=== PATIENT | male | born 1985 | race Caucasian/White ===

== ENCOUNTER 2017-09-03 13:06 | Emergency (ER) | payer OTHER ==
[~2017-09-03] VITALS: Ht 190.5 cm; Wt 118.3 kg
[~2017-09-03 13:06] MED LIST: GABA-1218 PO; VENL150C PO
[2017-09-03 13:08] VITALS: TEMP 36.4; Ht 190.5 cm; Wt 118.3 kg
[2017-09-03] MEDS ORDERED: OXCA600T2 PO (13:21)
[2017-09-03] MEDS ORDERED: ESCI1TAB10 PO (13:21)
[2017-09-03] MEDS ORDERED: HYDR25CA PO (13:21)
[2017-09-03] MEDS ORDERED: ABL10 PO (13:21)
[2017-09-03] MEDS ORDERED: KETOROLAC TROMETHAMINE 60 MG/2 ML VIAL IM STA (13:30)
--- NOTE | 2017-09-03 14:40 | DIAGNOSTIC IMAGING REPORT ---
CERVICAL SPINE 2 OR 3 VIEWS CLINICAL HISTORY: Neck pain with right-sided radiculopathy. COMPARISON STUDY: No previous studies for comparison. FINDINGS: Alignment of the cervical spine is anatomic with the exception of straightening. There is minimal disc space narrowing at C6-C7. There is minimal osteophytosis at C5-C6 and C6-C7. Prevertebral soft tissues are unremarkable. IMPRESSION: 1. No cervical spine fracture. 2. Mild disc space narrowing at C6-C7 with mild osteophytosis at C5-C6 and C6-C7. Electronically signed by: Librado Rod M.D. 09/03/2017 2:38 PM Dictated Date/Time: 09/03/2017 2:37 PM
--- NOTE | 2017-09-03 14:41 | DIAGNOSTIC IMAGING REPORT ---
L SHOULDER MIN 2 VIEWS ROUTINE CLINICAL HISTORY: 32 years-old Male presenting with left shoulder pain. TECHNIQUE: Internal rotation, external rotation, Grashey views of the left shoulder were obtained. COMPARISON: 04/08/2013. FINDINGS: Lucency at the level of the left humeral neck localizes to the lesser tuberosity. This is not simply changed from prior exam and may relate to cystic change at the insertion of the subscapularis tendon or a small bone cyst. No acute fracture or malalignment. No degenerative change. Glenohumeral and acromioclavicular joints congruent. Visualized portion left hemithorax normal. No soft tissue abnormality is apparent on radiograph. IMPRESSION: 1. No acute osseous injury. 2. Persistent lucency at the level of the lesser tuberosity/humeral neck. This may relate to cystic change in the insertion of the subscapularis tendon or small bone cyst. If the patient's shoulder pain localizes to this region, further evaluation with contrast-enhanced MR of the left shoulder could be considered. Electronically signed by: Miguelito Browne M.D. 09/03/2017 2:39 PM Dictated Date/Time: 09/03/2017 2:37 PM
[2017-09-03] MEDS ORDERED: NAPR-1169 PO (15:14)
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
[2017-09-03 15:29] VITALS: BP 142/76; PULSE 78; O2SAT 97
== END 2017-09-03 15:31 | disposition home or self-care (01) ==
LOC: C.EDB 13:07 → C.EDD 15:31
DX: M25.511 Pain in right shoulder (principal); G89.29 Other chronic pain; M85.60 Other cyst of bone, unspecified site; F41.9 Anxiety disorder, unspecified; F32.9 Major depressive disorder, single episode, unspecified; F17.200 Nicotine dependence, unspecified, uncomplicated

== ENCOUNTER 2017-09-10 21:59 | Emergency (ER) | payer OTHER ==
[~2017-09-10] VITALS: Ht 190.5 cm; Wt 116.0 kg
[~2017-09-10 21:59] MED LIST changes: +ABL10 PO; +ESCI1TAB10 PO; -GABA-1218 PO; +HYDR25CA PO; +NAPR-1169 PO; +OXCA600T2 PO; -VENL150C PO
[2017-09-10 22:04] VITALS: Ht 190.5 cm; Wt 116.0 kg
[2017-09-10] MEDS ORDERED: NALT50TA5 PO (22:29)
[2017-09-10 23:01] LABS: BASO % 0.6 %; BASO ABS # 0.05 K/uL (0-0.2); EOS % 4.5 %; EOS ABS # 0.41 K/uL (0-0.5); HEMATOCRIT 39.2 % (42-52); HEMOGLOBIN 14.8 g/dL (14.0-18.0); IG# 0.05 K/uL (0.00-0.02); LYMPH % 33.8 %; LYMPH ABS # 3.06 K/uL (1.2-3.4); MEAN CELL VOLUME 83.4 fL (80-100); MEAN CORPUSCULAR HEMOGLOBIN 31.5 pg (25-34); MEAN CORPUSCULAR HGB CONC 37.8 g/dl (32-36); MEAN PLATELET VOLUME 10.2 fL (7.4-10.4); MONO % 7.4 %; MONO ABS # 0.67 K/uL (0.11-0.59); NEUT % 53.1 %; NEUT ABS # 4.81 K/uL (1.4-6.5); PLATELET COUNT 245 K/uL (130-400); RED CELL DISTRIBUTION WIDTH CV 13.1 % (11.5-14.5); RED CELL DISTRIBUTION WIDTH SD 39.9 fL (36.4-46.3); WHITE BLOOD COUNT 9.05 K/uL (4.8-10.8)
[2017-09-10 23:19] LABS: ALBUMIN 3.6 gm/dl (3.4-5.0); CALCIUM 8.5 mg/dl (8.5-10.1); CREATININE 0.87 mg/dl (0.60-1.40); POTASSIUM 3.4 mmol/L (3.5-5.1)
--- NOTE | 2017-09-10 23:21 | EMERGENCY ROOM VISIT NOTE ---
History Report prepared by Cesilia: Mikey Espinoza Under the Supervision of: Dr. Clara Cutler D.O. First contact with patient: 23:01 Chief Complaint: MENTAL HEALTH EVALUATION Stated Complaint: MHID History of Present Illness The patient is a 32 year old male who presents to the Emergency Room with complaints of an episode of an intentional overdose occurring at 1600 today. The patient states that he took 10 25mg Vistaril tablets and 9 600mg Trileptal tablets. He notes that he had an intention for something to happen when he took the pills. He reports that he told his sister and roommate, who called EMS tonight. The patient states that he has a history of manic bipolar disorder, but sees a psychiatrist and has not been admitted as an inpatient in the past. He notes that he has been depressed recently because of a situation with his daughter, who was almost taken away from him. He reports that the last time he has seen his daughter was about a month ago. The patient states that he takes heroin and marijuana recreationally. He notes that the last time he used heroin was 5 months ago, and that he just recently started using marijuana. He reports that he also takes Lexapro and Abilify. He denies any diarrhea, constipation, vomiting, SOB, CP, alcohol use, and drug use tonight. Source of History: patient Onset: 1600 today Position: other (global) Quality: other (overdose) Timing: other (an episode) Associated Symptoms: No chest pain, No SOB, No vomiting, No diarrhea Note: The patient states that he took 10 25mg Vistaril tablets and 9 600mg Trileptal tablets. He denies any constipation. Review of Systems See HPI for pertinent positives & negatives. A total of 10 systems reviewed and were otherwise negative. Past Medical & Surgical Medical Problems: (1) Anxiety (2) Depression (3) Manic bipolar I disorder (4) TOBACCO USE DISORDER Family History Cancer Diabetes mellitus FHx: hypertension Heart disease Social History Smoking Status: Current Every Day Smoker Alcohol Use: none Drug Use: heroin, marijuana Marital Status: single Housing Status: lives with roommate Occupation Status: unemployed Current/Historical Medications Scheduled Aripiprazole (Abilify), 10 MG PO DAILY Escitalopram Oxalate (Lexapro), 20 MG PO DAILY Hydroxyzine Pamoate (Vistaril), 25 MG PO TID Oxcarbazepine (Trileptal), 600 MG PO BID Scheduled PRN Naltrexone Hcl (Naltrexone Hcl), 50 MG PO DAILY PRN for UNDECIDED Allergies Coded Allergies: Vortioxetine (Verified Allergy, Unknown, FACIAL SWELLING, 09/10/17) Physical Exam Vital Signs Date Time Temp Pulse Resp B/P (MAP) Pulse Ox O2 Delivery O2 Flow Rate FiO2 09/11/17 05:21 83 15 125/72 99 Room Air 09/11/17 03:20 88 16 100/74 96 Room Air 09/11/17 01:00 86 14 117/78 09/11/17 00:00 92 16 118/77 95 09/10/17 23:30 95 17 09/10/17 23:19 95 17 140/78 96 09/10/17 22:04 36.8 93 16 163/91 98 Room Air Physical Exam General: Quite tired, yawning frequently, drooling at times. Neck: Supple; no JVD, nuchal rigidity, cervical lymphadenopathy, or auscultated bruits. Heart: Regular rate and rhythm. There is a normal S1 and S2 with no murmurs, clicks, or gallops appreciated. Lungs: Clear to auscultation bilaterally with no wheezes, rales, or rhonchi. Abdomen: Soft, completely nontender, nondistended, with good bowel sounds. There are no palpable pulsatile masses or hepatosplenomegaly. There is no guarding, rigidity, or rebound noted. Extremities: No evidence of cyanosis, clubbing, or edema. There are easily palpable peripheral pulses. Skin: warm and dry with good turgor and no rashes. Psych: Appears depressed, admits to suicide attempt by overdose. Medical Decision & Procedures Laboratory Results 09/10/17 22:38 Red Blood Count 4.70, Mean Corpuscular Volume 83.4, Mean Corpuscular Hemoglobin 31.5, Mean Corpuscular Hemoglobin Concent 37.8, Mean Platelet Volume 10.2, Neutrophils (%) (Auto) 53.1, Lymphocytes (%) (Auto) 33.8, Monocytes (%) (Auto) 7.4, Eosinophils (%) (Auto) 4.5, Basophils (%) (Auto) 0.6, Neutrophils # (Auto) 4.81, Lymphocytes # (Auto) 3.06, Monocytes # (Auto) 0.67, Eosinophils # (Auto) 0.41, Basophils # (Auto) 0.05 09/10/17 22:38 Test 09/10/17 22:00 09/10/17 22:38 Urine Color YELLOW Urine Appearance CLEAR (CLEAR) Urine pH 6.5 (4.5-7.5) Urine Specific [place] 1.024 (1.000-1.030) Urine Protein NEG (NEG) Urine Glucose (UA) NEG (NEG) Urine Ketones NEG (NEG) Urine Occult Blood NEG (NEG) Urine Nitrite NEG (NEG) Urine Bilirubin NEG (NEG) Urine Urobilinogen NEG (NEG) Urine Leukocyte Esterase NEG (NEG) Urine Opiates Screen NEG (NEG) Urine Methadone, Qualitative NEG (NEG) Urine Barbiturates NEG (NEG) Urine Phencyclidine (PCP) Level NEG (NEG) Ur Amphetamine/Methamphetamine NEG (NEG) MDMA (Ecstasy) Screen NEG (NEG) Urine Benzodiazepines Screen NEG (NEG) Urine Cocaine Metabolite NEG (NEG) Urine Marijuana (THC) POS (NEG) White Blood Count 9.05 K/uL (4.8-10.8) Red Blood Count 4.70 M/uL (4.7-6.1) Hemoglobin 14.8 g/dL (14.0-18.0) Hematocrit 39.2 % (42-52) Mean Corpuscular Volume 83.4 fL (80-100) Mean Corpuscular Hemoglobin 31.5 pg (25-34) Mean Corpuscular Hemoglobin Concent 37.8 g/dl (32-36) Platelet Count 245 K/uL (130-400) Mean Platelet Volume 10.2 fL (7.4-10.4) Neutrophils (%) (Auto) 53.1 % Lymphocytes (%) (Auto) 33.8 % Monocytes (%) (Auto) 7.4 % Eosinophils (%) (Auto) 4.5 % Basophils (%) (Auto) 0.6 % Neutrophils # (Auto) 4.81 K/uL (1.4-6.5) Lymphocytes # (Auto) 3.06 K/uL (1.2-3.4) Monocytes # (Auto) 0.67 K/uL (0.11-0.59) Eosinophils # (Auto) 0.41 K/uL (0-0.5) Basophils # (Auto) 0.05 K/uL (0-0.2) RDW Standard Deviation 39.9 fL (36.4-46.3) RDW Coefficient of Variation 13.1 % (11.5-14.5) Immature Granulocyte % (Auto) 0.6 % Immature Granulocyte # (Auto) 0.05 K/uL (0.00-0.02) Anion Gap 7.0 mmol/L (3-11) Est Creatinine Clear Calc Drug Dose 167.4 ml/min Estimated GFR () 132.4 Estimated GFR (Non- 114.2 BUN/Creatinine Ratio 11.4 (10-20) Calcium Level 8.5 mg/dl (8.5-10.1) Total Bilirubin 0.2 mg/dl (0.2-1) Aspartate Amino Transf (AST/SGOT) 16 U/L (15-37) Alanine Aminotransferase (ALT/SGPT) 41 U/L (12-78) Alkaline Phosphatase 90 U/L (45-117) Total Protein 6.9 gm/dl (6.4-8.2) Albumin 3.6 gm/dl (3.4-5.0) Globulin 3.3 gm/dl (2.5-4.0) Albumin/Globulin Ratio 1.1 (0.9-2) Thyroid Stimulating Hormone (TSH) 4.490 uIu/ml (0.300-4.500) Salicylates Level < 1.7 mg/dl (2.8-20) Acetaminophen Level < 2 ug/ml (10-30) Ethyl Alcohol mg/dL < 3.0 mg/dl (0-3) Laboratory results per my review. ECG Indication: toxicologic Rate (beats per minute): 90 Rhythm: normal sinus Findings: no acute ischemic change, no ectopy ED Course 2309: Past medical records reviewed. The patient was evaluated in room A7. A complete history and physical exam was performed. Labs were drawn as above. A twelve-lead EKG was obtained. 2317: Poison control was contacted. 2353: Patient's electrocardiogram was interpreted by me. 0029: I reevaluated the patient. He was sleeping. His vitals were stable. 0416: I rechecked the patient. He is awake and medically cleared. 0622: I reevaluated the patient. He will sign himself in voluntarily. The human services case manager is waiting to hear back from the [facility]. 0644: The patient requested something for his pain that is a non-opiate. He was given a dose of Tylenol. 0700: The patient was accepted to the [facility]. Medical Decision The patient is a 32 year old male who presents to the Emergency Room with complaints of an episode of an intentional overdose occurring at 1600 today. Differential diagnoses include intentional overdose, mood disorder, thought disorder, and drug abuse. Lab Results Show: Tox screen positive for marijuana. Alcohol negative. Tylenol and aspirin negative. Urinalysis is normal. LFTs and TSH are normal. Glucose 125. Normal renal function. No leukocytosis and stable H&H. This is a 32-year-old male patient who took an overdose of Trileptal and Vistaril. He stated that this was an effort to kill himself as he is upset about his situation with his daughter. He admits that he is not in a good position at this time. He is willing to sign himself in voluntarily for inpatient psychiatric care. The patient was observed for a period of time until he was more awake and medically cleared. He had an EKG which was unremarkable. He was on the alarm security or surveillance monitor with no sign of prolonged QT. We observed the patient here in the emergency department until he was more awake and could appropriately answer questions. He was evaluated by staff from [facility]. They made a referral to the [facility] the patient has been accepted there. Transport arrangements are being made. His morning medications were ordered. Blood Pressure Screening Patient's blood pressure: Normal blood pressure Blood pressure disposition: Did not require urgent referral Impression Primary Impression: Polysubstance overdose Additional Impression: Suicide attempt Scribe Attestation The scribe's documentation has been prepared under my direction and personally reviewed by me in its entirety. I confirm that the note above accurately reflects all work, treatment, procedures, and medical decision making performed by me. Departure Information Referrals No Doctor, Assigned (PCP) Patient Instructions My [facility] Problem Qualifiers Primary Impression: Polysubstance overdose Encounter type: initial encounter Injury intent: intentional self-harm Qualified Codes: T50.902A - Poisoning by unspecified drugs, medicaments and biological substances, intentional self-harm, initial encounter
[2017-09-10 23:29] LABS: TOTAL PROTEIN 6.9 gm/dl (6.4-8.2)
[2017-09-11] MEDS ORDERED: ACETAMINOPHEN 500 MG TAB PO STA (06:44)
[2017-09-11] MEDS ORDERED: ESCITALOPRAM OXALATE 20 MG TAB PO STA (06:55)
[2017-09-11] MEDS ORDERED: ARIPIprazole TAB 10 MG TAB PO STA (06:55)
[2017-09-11 10:48] VITALS: BP 124/71; PULSE 81; TEMP 36.6; O2SAT 97
== END 2017-09-11 10:49 ==
LOC: EDBD 21:59 → C.EDA 22:00
DX: T42.6X2A Poisoning by other antiepileptic and sedative-hypnotic drugs, intentional self-harm, initial encounter (principal); T45.0X2A Poisoning by antiallergic and antiemetic drugs, intentional self-harm, initial encounter; F41.9 Anxiety disorder, unspecified; F32.9 Major depressive disorder, single episode, unspecified; F31.9 Bipolar disorder, unspecified; F17.210 Nicotine dependence, cigarettes, uncomplicated; Z80.9 Family history of malignant neoplasm, unspecified; Z83.3 Family history of diabetes mellitus; Z82.49 Family history of ischemic heart disease and other diseases of the circulatory system; Z79.899 Other long term (current) drug therapy; Z88.8 Allergy status to other drugs, medicaments and biological substances

== ENCOUNTER 2017-12-06 18:51 | Emergency (ER) | payer OTHER ==
[~2017-12-06] VITALS: Ht 190.5 cm; Wt 125.9 kg
[~2017-12-06 18:51] MED LIST changes: +NALT50TA5 PO; -NAPR-1169 PO
[2017-12-06 18:55] VITALS: TEMP 36.5; Ht 190.5 cm; Wt 125.9 kg
[2017-12-06] MEDS ORDERED: HALO2TAB PO ×2 (19:20)
[2017-12-06] MEDS ORDERED: LURA40TA PO (19:20)
--- NOTE | 2017-12-06 19:34 | EMERGENCY ROOM VISIT NOTE ---
History Report prepared by Cesilia: Haydee Angeles Under the Supervision of: Dr. Conchita Ray D.O. First contact with patient: 19:13 Chief Complaint: OTHER COMPLAINT Stated Complaint: BAD REACTION TO PSYCH MEDS, TWITCHING, AGITATED, History of Present Illness The patient is a 32 year old male who presents to the Emergency Room with complaints of intermittent twitching that started 5 days ago. The patient reports he recent switched anxiety medication 5 days ago. He notes he was taking Haldol for a couple months but was switched to Latuda. He is still tapering off the Haldol but his Abilify was abrupting stopped. He states ever since he started the Latuda he has been twitching, restless, and agitated. He reports the twitching is equal between his arms and legs. He denies muscle aches or soreness resulting from the twitching. The patient states he called his doctor and she prescribed Vistaril to help with his twitching and restlessness. He notes he is dizzy and lightheaded when he stands up. The patient has a history of bipolar disorder, depression, and generalized anxiety disorder. He reports it would get so bad that he has thoughts of hurting himself. He notes he had thoughts of hurting himself this past week but was able to "shake it off". Pt denies headache, change in vision, fevers, chest pain , shortness of breath, nausea, vomiting, diarrhea, pain with urination, and melena. No current SI. Source of History: patient Onset: 5 days ago Position: other (psychiatric) Timing: intermittent Associated Symptoms: No fevers, No headache, No chest pain, No SOB, No nausea, No vomiting, No melena, No diarrhea, No urinary symptoms Note: additional symptoms: dizzy, light headed. Review of Systems See HPI for pertinent positives & negatives. A total of 10 systems reviewed and were otherwise negative. Past Medical & Surgical Medical Problems: (1) Anxiety (2) Depression (3) Manic bipolar I disorder (4) TOBACCO USE DISORDER Family History Cancer Diabetes mellitus FHx: hypertension Heart disease Social History Smoking Status: Current Every Day Smoker Alcohol Use: none Drug Use: heroin, marijuana Marital Status: single Housing Status: lives with roommate Occupation Status: unemployed Current/Historical Medications Scheduled Escitalopram Oxalate (Lexapro), 20 MG PO DAILY Haloperidol (Haloperidol), 4 MG PO QPM Haloperidol (Haloperidol), 2 MG PO QAM Hydroxyzine Pamoate (Vistaril), 25 MG PO TID Lurasidone Hcl (Latuda), 40 MG PO DAILY Allergies Coded Allergies: Chlorpromazine (Unverified Allergy, Severe, TONGUE SWELLING, 12/06/17) Vortioxetine (Verified Allergy, Unknown, FACIAL SWELLING, 09/10/17) Naltrexone (Unverified Adverse Reaction, Severe, THROAT SWELLING, 12/06/17) Physical Exam Vital Signs Date Time Temp Pulse Resp B/P (MAP) Pulse Ox O2 Delivery O2 Flow Rate FiO2 12/06/17 21:50 80 18 122/78 99 Room Air 12/06/17 20:57 70 18 135/76 98 Room Air 12/06/17 18:55 36.5 104 18 148/82 95 Room Air Physical Exam GENERAL: alert, well appearing, well nourished, no distress, non-toxic, odd affect. EYE EXAM: normal conjunctiva, PERRL and EOM's grossly intact OROPHARYNX: no exudate, no erythema, lips, buccal mucosa, and tongue normal and mucous membranes are moist NECK: supple, no nuchal rigidity, no adenopathy, non-tender LUNGS: Clear to auscultation. Normal chest wall mechanics, no w/r/r HEART: no murmurs, S1 normal and S2 normal ABDOMEN: abdomen soft, non-tender, normo-active bowel sounds, no masses, no rebound or guarding. BACK: Back is symmetrical on inspection and there is no deformity, no midline tenderness, no CVA tenderness. SKIN: no rashes and no bruising UPPER EXTREMITIES: upper extremities are grossly normal. LOWER EXTREMITIES: No pitting edema. NEURO EXAM: Normal sensorium, cranial nerves II-XII [grossly] intact, normal speech, no [gross] weakness of arms, no [gross] weakness of legs. No facial droop, normal gait. Medical Decision & Procedures Medications Administered Medications (Trade) Dose Ordered Sig/Mkia Route Start Time Stop Time Status Last Admin Dose Admin Lorazepam (Ativan Tab) 1 mg NOW STAT SL 12/06/17 19:39 12/06/17 19:41 DC 12/06/17 19:39 1 MG Lorazepam (Ativan Tab) 1 mg NOW STAT SL 12/06/17 20:47 12/06/17 20:49 DC 12/06/17 20:47 1 MG Lorazepam (Ativan 1MG Home Pack) 1 homepack UD ONCE PO 12/06/17 22:00 12/06/17 22:01 DC 12/06/17 22:00 1 HOMEPACK ECG Per My Interpretation Indication: toxicologic Rate (beats per minute): 91 Rhythm: normal sinus Findings: no acute ischemic change, no ectopy ED Course 1912: The patient was evaluated in room A6. A complete history and physical exam was performed. 1938: Ativan Tab 1 mg SL. 2044: I rechecked the patient and he states that he feels no different. 2046: Ativan Tab 1 mg SL. 2144: Upon reevaluation, the patient is feeling better. I discussed the findings and the treatment plan with the patient. He verbalizes agreement and understanding. He was discharged home. Medical Decision Differential diagnosis: Etiologies such as toxicologic, infection, hypoglycemia, electrolyte abnormalities, cardiac sources, intracerebral event, neurologic, as well as others were entertained. Patient improved here following additional Ativan. Discussed with him close follow-up with his prescribing doctor given all the recent medication changes all of which could have contributed to his symptoms over the course of the week. Patient well-appearing at this time, denies SI and HI. Patient, cooperative, I do not feel he needs urgent psychiatric evaluation. Discussed with patient symptoms to watch and return for, he verbalized understanding was agreeable with plan. Patient had a ride home with a friend. Patient well-appearing here, no physical exam findings to suggest serotonin syndrome. I do not feel patient required additional labs. EKG reassuring with normal intervals. Medication Reconcilliation Current Medication List: was personally reviewed by me Impression Primary Impression: Restlessness Additional Impression: Adverse drug effect Scribe Attestation The scribe's documentation has been prepared under my direction and personally reviewed by me in its entirety. I confirm that the note above accurately reflects all work, treatment, procedures, and medical decision making performed by me. Departure Information Dispostion Home / Self-Care Patient Instructions My [facility] Additional Instructions Please continue your medications for please call and discuss with your prescribing doctor the effects you have been having. You may use the Ativan to help minimize the restlessness at home until your doctor makes other adjustments to your medication regimen. If you have any worsening restlessness , develop tremors, fevers, racing heart, dizziness, muscle spasms, you have any other new concerns, please return the emergency room. Problem Qualifiers Additional Impression: Adverse drug effect Encounter type: initial encounter Qualified Codes: T88.7XXA - Unspecified adverse effect of drug or medicament, initial encounter
[2017-12-06] MEDS ORDERED: LORAZEPAM 1 MG TAB SL STA ×2 (19:39→20:47)
[2017-12-06 21:50] VITALS: BP 122/78; PULSE 80; O2SAT 99
[2017-12-06] MEDS ORDERED: ATIVAN 1MG HOMEPACK PO ONE (22:00)
== END 2017-12-06 22:07 | disposition home or self-care (01) ==
LOC: C.EDB 18:52 → C.EDA 22:07
DX: R45.1 Restlessness and agitation (principal); T88.7XXA Unspecified adverse effect of drug or medicament, initial encounter; R25.3 Fasciculation; R42 Dizziness and giddiness; Z79.899 Other long term (current) drug therapy; Z88.8 Allergy status to other drugs, medicaments and biological substances; F17.200 Nicotine dependence, unspecified, uncomplicated

== ENCOUNTER 2018-12-06 20:02 | Inpatient (IN) ==
[2018-12-06] MEDS ORDERED: ONDANSETRON INJ 2 MG/ML 2 ML VIAL IV STA (20:33)
[2018-12-06] MEDS ORDERED: SODIUM CHLORIDE 0.9% 1000ML 1,000 ML IV SCH (20:45)
--- NOTE | 2018-12-06 20:50 | XRay Report ---
SINGLE VIEW CHEST CLINICAL HISTORY: Vomiting. Overdose. FINDINGS: An AP, portable, upright chest radiograph is obtained. No prior studies are available for c omparison at the time of dictation. The cardiomediastinal silhouette is unremarkable. The lungs and pleural spaces are clear. No pneumothorax is seen. The bony thorax is grossly intact. IMPRESSION: No active disease in the chest. Electronically signed by: Jose Flores M.D. 12/06/2018 8:49 PM
[2018-12-06 21:17] LABS: Amphetamines+Metham, Urine Neg (Neg); Barbiturates, Urine Neg (Neg); Benzodiazepine, Urine Neg (Neg); Cocaine, Urine Neg (Neg); MDMA (Ecstacy), Urine Neg (Neg); Methadone, Urine Neg (Neg); Opiate, Urine Neg (Neg); Phencyclidine, Urine Neg (Neg)
[2018-12-06 21:17] LABS: Partial Thromboplastin Ratio 0.9; Partial Thromboplastin Time 24.5 Seconds (21.0-31.0); Prothrombin Time 10.7 Seconds (9.0-12.0)
[2018-12-06 21:24] LABS: Alanine Aminotransferase 32 U/L (12-78); Aspartate Aminotransferase 27 U/L (15-37); BUN Creatinine Ratio 9.6 (10-20); Blood Urea Nitrogen 8 mg/dl (7-18); Calcium 8.5 mg/dl (8.5-10.1); Carbon Dioxide 24 mmol/L (21-32); Chloride 103 mmol/L (98-107); Creatinine Clr Calc Pharmacy 164.1 ml/min; Est GFR (African American) 132.1; Est GFR (Non-African American) 113.9; Glucose 98 mg/dl (70-99); Potassium 3.5 mmol/L (3.5-5.1); Sodium 137 mmol/L (136-145)
[2018-12-06 21:34] LABS: Acetaminophen < 2 ug/ml (10-30); Albumin Globulin Ratio 1.2 (0.9-2); Alkaline Phosphatase 92 U/L (45-117); Bilirubin,Total 0.3 mg/dl (0.2-1); Creatine Kinase 583 U/L (39-308); Globulin 3.3 gm/dl (2.5-4.0); Salicylate 2.3 mg/dl (2.8-20); Total Protein 7.3 gm/dl (6.4-8.2); Troponin I < 0.015 ng/ml (0-0.045)
--- NOTE | 2018-12-06 21:42 | Emergency Department Note ---
Entered by Jose Rapp acting as a scribe for Jose Lau MD History of Present Illness General Chief complaint: Overdose (Intentional) Stated complaint: OVERDOSE Time Seen by Provider: 12/06/18 20:23 Source: patient and EMS History of Present Illness Provider complaint: Overdose Onset (ago): minute(s) Location: left and right Relieved By: + none Associated symptoms: + nausea/vomiting Treatments prior to arrival: none The patient is a 33 year old male with a history of heroin abuse, bipolar disorder, and suicide attempts who presents to the Emergency Room with complaint s of an overdose suffered shortly prior to arrival. Per EMS, the patient was found roadside by police stating that he "does not want to feel this way anymore". The patient states he took 28 pills total including 22 Trileptal (300mg) and 5 Lexapro (10mg) 50 mg of hydroxyzine. The patient notes that he has felt manic and has not been able to sleep for the past few days. He also adds that he has been walking for miles "against his will". The patient presently complains of nausea and vomiting. The patient reports using Suboxone and Meth 1 week ago. The patient denies using alcohol Home Medications Home Medications Medication Instructions Recorded Confirmed Type escitalopram oxalate 10 mg PO QAM 12/06/18 12/06/18 History hydroxyzine pamoate [Vistaril] 25 mg PO TID 12/06/18 12/06/18 History oxcarbazepine 150 mg PO AMHS 12/06/18 12/06/18 History oxcarbazepine 300 mg PO BID 12/06/18 12/06/18 History Allergies Allergy/AdvReac Type Severity Reaction Status Date / Time chlorpromazine Allergy Severe TONGUE Unverified 12/06/18 22:08 SWELLING vortioxetine Allergy Unknown FACIAL Verified 12/06/18 22:08 SWELLING citalopram AdvReac Severe suicidal Unverified 12/06/18 22:08 naltrexone AdvReac Severe THROAT Unverified 12/06/18 22:08 SWELLING haloperidol AdvReac Intermediate twitching Unverified 12/06/18 22:08 Past Med/Surg History Medical History Heroin abuse Suicide attempt Social History Feels Safe at Home: Yes Smoking Status: Current every day smoker Review of Systems See HPI for pertinent positives & negatives. and A total of 10 systems reviewed and were otherwise negative Physical Exam Vital Signs Vital Signs - 24 hr 12/06/18 19:57 12/06/18 20:07 12/06/18 20:14 Temperature 36.8 C Temperature Source Oral Sepsis Recent Fever Within 48 Hours No Sepsis New/Unexplained Change in Mental Status No Sepsis Action Taken by Nursing No Action Required Pulse Rate 86 96 H 89 Pulse Rate from SpO2 Sensor 95 H 92 H Respiratory Rate 20 11 L 9 L Respiratory Effort / Characteristics Non-Labored Spontaneous Respiratory Depth Normal Respiratory Pattern Regular Blood Pressure 152/94 H 152/94 H Blood Pressure Mean 113 113 Blood Pressure Position Lying Pulse Oximetry 99 99 98 Oxygen Delivery Method Room Air 12/06/18 20:20 12/06/18 20:23 12/06/18 20:30 Temperature Temperature Source Sepsis Recent Fever Within 48 Hours Sepsis New/Unexplained Change in Mental Status Sepsis Action Taken by Nursing Pulse Rate 94 H 86 Pulse Rate from SpO2 Sensor 94 H 88 Respiratory Rate 17 12 Respiratory Effort / Characteristics Respiratory Depth Respiratory Pattern Blood Pressure Blood Pressure Mean Blood Pressure Position Pulse Oximetry 99 100 Oxygen Delivery Method Room Air 12/06/18 20:31 12/06/18 20:40 12/06/18 20:50 Temperature Temperature Source Sepsis Recent Fever Within 48 Hours Sepsis New/Unexplained Change in Mental Status Sepsis Action Taken by Nursing Pulse Rate 90 82 Pulse Rate from SpO2 Sensor Respiratory Rate 19 23 Respiratory Effort / Characteristics Respiratory Depth Respiratory Pattern Blood Pressure Blood Pressure Mean Blood Pressure Position Pulse Oximetry Oxygen Delivery Method Room Air 12/06/18 21:00 12/06/18 21:10 12/06/18 21:20 Temperature Temperature Source Sepsis Recent Fever Within 48 Hours Sepsis New/Unexplained Change in Mental Status Sepsis Action Taken by Nursing Pulse Rate 87 86 79 Pulse Rate from SpO2 Sensor Respiratory Rate 26 H 25 H 19 Respiratory Effort / Characteristics Respiratory Depth Respiratory Pattern Blood Pressure Blood Pressure Mean Blood Pressure Position Pulse Oximetry Oxygen Delivery Method 12/06/18 21:30 12/06/18 21:40 12/06/18 21:50 Temperature Temperature Source Sepsis Recent Fever Within 48 Hours Sepsis New/Unexplained Change in Mental Status Sepsis Action Taken by Nursing Pulse Rate 78 75 71 Pulse Rate from SpO2 Sensor Respiratory Rate 24 17 11 L Respiratory Effort / Characteristics Respiratory Depth Respiratory Pattern Blood Pressure Blood Pressure Mean Blood Pressure Position Pulse Oximetry Oxygen Delivery Method 12/06/18 22:00 12/06/18 22:10 12/06/18 22:20 Temperature Temperature Source Sepsis Recent Fever Within 48 Hours Sepsis New/Unexplained Change in Mental Status Sepsis Action Taken by Nursing Pulse Rate 67 76 80 Pulse Rate from SpO2 Sensor Respiratory Rate 22 15 17 Respiratory Effort / Characteristics Respiratory Depth Respiratory Pattern Blood Pressure Blood Pressure Mean Blood Pressure Position Pulse Oximetry Oxygen Delivery Method GENERAL: Patient is in no acute distress. PSYCH: Cooperative, admits to a suicide attempt by overdose, admits to recent orion. HEENT: No acute trauma, normocephalic atraumatic, mucous membranes moist, no nasal congestion, no scleral icterus. NECK: No stridor, no adenopathy, no meningismus, trachea is midline. LUNGS: Clear to auscultation bilaterally, no wheeze, no rhonchi, breath sounds equal. HEART: Without murmurs gallops or rubs, regular rate and rhythm. ABDOMEN: Soft, nontender, bowel sounds positive, no hernias, no peritonitis. EXTREMITIES: No cyanosis or edema, full range of motion of all the joints without pain or difficulty, no signs for acute trauma. NEUROLOGIC: Oriented x 3, no acute motor or sensory deficits, no focal weakness. SKIN: No rash, no jaundice, no diaphoresis. Course 2022: The patient was evaluated in room C10. A complete history and physical exam was performed. 2215: I reviewed the case with Dr. Kris Estevez. He will evaluate the patient. Consultations Consultation #1: [id number]: I reviewed the case with Dr. Kris Estevez. He will evaluate the patient. Time: 22:15 Administered Medications Discontinued Medications Sodium Chloride (Nss 1000ml) 1,000 mls @ 999 mls/hr IV .Q1H1M ROO[place]T Stop: 12/06/18 21:45 Last Infusion: 12/06/18 22:20 Dose: 0 mls/hr Documented by: [id number] Admin: 12/06/18 21:18 Dose: 999 mls/hr Documented by: [id number] Ondansetron HCl (Zofran) 4 mg IV NOW STA Stop: 12/06/18 20:34 Last Admin: 12/06/18 21:17 Dose: 4 mg Documented by: [id number] Medical Decision Making Differential Diagnosis Differential Diagnosis: suicidality, medication overdose, orion, aspiration, dehydration, electrolyte imbalance, thyroid disorder, drug/alcohol abuse Medical Records Attestation: I reviewed the patient's medical records. Home Medications Current Medication List: was personally reviewed by me Laboratory Data Attestation: I reviewed the patient's lab results. Result diagrams: 12/06/18 20:56 12/06/18 20:56 Lab Results 12/06/18 12/06/18 12/06/18 Range/Units 20:48 20:51 20:56 WBC 12.61 H (4.8-10.8) K/uL RBC 4.93 (4.7-6.1) M/uL Hgb 16.1 (14.0-18.0) g/dL Hct 42.6 (42-52) % MCV 80.7 (80-100) fL MCH 30.5 (25-34) pg MCHC 37.7 H (32-36) g/dL RDW Std Deviation 37.0 (36.4-46.3) fL RDW Coeff of Virgilio 12.8 (11.5-14.5) % Plt Count 264 (130-400) K/uL MPV 10.0 (7.4-10.4) fL Immature Gran % (Auto) 0.4 % Neut % (Auto) 78.2 % Lymph % (Auto) 14.3 % Campbell % (Auto) 5.7 % Eos % (Auto) 1.0 % Baso % (Auto) 0.4 % Immature Gran # (Auto) 0.05 H (0.00-0.02) K/uL Neut # (Auto) 9.87 H (1.4-6.5) K/uL Lymph # (Auto) 1.80 (1.2-3.4) K/uL Campbell # (Auto) 0.72 H (0.11-0.59) K/uL Eos # (Auto) 0.12 (0-0.5) K/uL Baso # (Auto) 0.05 (0-0.2) K/uL RBC Morphology Unremarkable PT (9.0-12.0) Seconds INR (0.9-1.1) APTT (21.0-31.0) Seconds PTT Ratio Sodium (136-145) mmol/L Potassium (3.5-5.1) mmol/L Chloride (98-107) mmol/L Carbon Dioxide (21-32) mmol/L Anion Gap (3-11) BUN (7-18) mg/dl Creatinine (0.6-1.4) mg/dl Est Cr Clr Drug Dosing ml/min Est GFR ( Amer) Est GFR (Non-Af Amer) BUN/Creatinine Ratio (10-20) Glucose (70-99) mg/dl Calcium (8.5-10.1) mg/dl Magnesium (1.8-2.4) mg/dl Total Bilirubin (0.2-1) mg/dl AST (15-37) U/L ALT (12-78) U/L Alkaline Phosphatase (45-117) U/L Total Creatine Kinase (39-308) U/L Troponin I (0-0.045) ng/ml Total Protein (6.4-8.2) gm/dl Albumin (3.4-5.0) gm/dl Globulin (2.5-4.0) gm/dl Albumin/Globulin Ratio (0.9-2) TSH (0.300-4.500) uIu/ml Salicylates (2.8-20) mg/dl Urine Opiates Screen Neg (Neg) Ur Methadone, Qual Neg (Neg) Acetaminophen (10-30) ug/ml Urine Barbiturates Neg (Neg) Ur Phencyclidine (PCP) Neg (Neg) U Amphetamin/Meth Scrn Neg (Neg) MDMA (Ecstasy) Screen Neg (Neg) U Benzodiazepines Scrn Neg (Neg) Ur Cocaine Metabolite Neg (Neg) U Marijuana (THC) Screen Pos H (Neg) Ethyl Alcohol mg/dL < 3.0 (0-3) mg/dl 12/06/18 12/06/18 12/06/18 Range/Units 20:56 20:56 20:56 WBC (4.8-10.8) K/uL RBC (4.7-6.1) M/uL Hgb (14.0-18.0) g/dL Hct (42-52) % MCV (80-100) fL MCH (25-34) pg MCHC (32-36) g/dL RDW Std Deviation (36.4-46.3) fL RDW Coeff of Virgilio (11.5-14.5) % Plt Count (130-400) K/uL MPV (7.4-10.4) fL Immature Gran % (Auto) % Neut % (Auto) % Lymph % (Auto) % Campbell % (Auto) % Eos % (Auto) % Baso % (Auto) % Immature Gran # (Auto) (0.00-0.02) K/uL Neut # (Auto) (1.4-6.5) K/uL Lymph # (Auto) (1.2-3.4) K/uL Campbell # (Auto) (0.11-0.59) K/uL Eos # (Auto) (0-0.5) K/uL Baso # (Auto) (0-0.2) K/uL RBC Morphology PT 10.7 (9.0-12.0) Seconds INR 1.0 (0.9-1.1) APTT 24.5 (21.0-31.0) Seconds PTT Ratio 0.9 Sodium 137 (136-145) mmol/L Potassium 3.5 (3.5-5.1) mmol/L Chloride 103 (98-107) mmol/L Carbon Dioxide 24 (21-32) mmol/L Anion Gap 10.0 (3-11) BUN 8 (7-18) mg/dl Creatinine 0.86 (0.6-1.4) mg/dl Est Cr Clr Drug Dosing 164.1 ml/min Est GFR ( Amer) 132.1 Est GFR (Non-Af Amer) 113.9 BUN/Creatinine Ratio 9.6 L (10-20) Glucose 98 (70-99) mg/dl Calcium 8.5 (8.5-10.1) mg/dl Magnesium 2.0 (1.8-2.4) mg/dl Total Bilirubin 0.3 (0.2-1) mg/dl AST 27 (15-37) U/L ALT 32 (12-78) U/L Alkaline Phosphatase 92 (45-117) U/L Total Creatine Kinase 583 H (39-308) U/L Troponin I < 0.015 (0-0.045) ng/ml Total Protein 7.3 (6.4-8.2) gm/dl Albumin 4.0 (3.4-5.0) gm/dl Globulin 3.3 (2.5-4.0) gm/dl Albumin/Globulin Ratio 1.2 (0.9-2) TSH 1.590 (0.300-4.500) uIu/ml Salicylates 2.3 L (2.8-20) mg/dl Urine Opiates Screen (Neg) Ur Methadone, Qual (Neg) Acetaminophen < 2 L (10-30) ug/ml Urine Barbiturates (Neg) Ur Phencyclidine (PCP) (Neg) U Amphetamin/Meth Scrn (Neg) MDMA (Ecstasy) Screen (Neg) U Benzodiazepines Scrn (Neg) Ur Cocaine Metabolite (Neg) U Marijuana (THC) Screen (Neg) Ethyl Alcohol mg/dL (0-3) mg/dl Imaging Data Radiologist's Impression: Radiology results as stated below per my review and the radiologist's interpretation: SINGLE VIEW CHEST CLINICAL HISTORY: Vomiting. Overdose. FINDINGS: An AP, portable, upright chest radiograph is obtained. No prior stud ies are available for comparison at the time of dictation. The cardiomediastinal silhouette is unremarkable. The lungs and pleural spaces are clear. No pneumothorax is seen. The bony thorax is grossly intact. IMPRESSION: No active disease in the chest. Electronically signed by: Jose Flores M.D. 12/06/2018 8:49 PM ECG Data Attestation: I personally reviewed and interpreted this ECG as follows: Indication: other (overdose) Rate (beats per minute): 85 Findings: no PVC and no ST elevation Blood Pressure Blood Pressure Findings: Elevated blood pressure Blood Pressure Disposition: further management by hospitalist MARY Narrative There is a mild leukocytosis at 12,000, this could be consistent with infection or just the stress of his situation. No concerning anemia. No coagulopathy. No significant electrolyte abnormality, kidney failure or hepatitis. Total CK was slightly elevated at 583. This will need to be followed. EKG showed a sinus rhythm, no acute ischemia. Cardiac enzyme testing x1 is not consistent with acute cardiac injury. Patient appeared to be in a euthyroid state. Aspir in and Tylenol levels were basically undetectable. Urine tox showed marijuana only. Alcohol level was undetectable. Chest film did not show free air, mediastinal widening or pneumonia. The patient received IV saline, he was given IV Zofran, he is resting comfortably. The patient requires a hospital stay for this multidrug overdose. He is not able to go directly to psychiatry. I did speak to the patient and case management. The on-call hospitalist was consulted. Impression & Plan Suicidal ideation, Medication overdose, Vomiting Discharge Plan Visit Data Chief Complaint: Overdose (Intentional) Stated Complaint: OVERDOSE ED Provider: Jose Lau Discharge Problem: Suicidal ideation, Medication overdose, Vomiting Patient Disposition: Being Evaluated by Hospitalist Forms Stand Alone Forms: My [facility] Prescriptions Prescriptions: No Action oxcarbazepine 150 mg tablet 150 mg PO AMHS RF: 0 oxcarbazepine 300 mg tablet 300 mg PO BID RF: 0 hydroxyzine pamoate [Vistaril] 25 mg capsule 25 mg PO TID RF: 0 escitalopram oxalate 10 mg tablet 10 mg PO QAM RF: 0 Referrals Referrals: PCP,NO [Primary Care Provider] - Discharge Problem: Medication overdose Qualifiers: Encounter type: initial encounter Injury intent: intentional self-harm Qualified Code(s): T50.902A - Poisoning by unspecified drugs, medicaments and biological substances, intentional self-harm, initial encounter Vomiting Qualifiers: Vomiting type: unspecified Vomiting Intractability: non-intractable Nausea presence: with nausea Qualified Code(s): R11.2 - Nausea with vomiting, unspecified The scribe's documentation has been prepared under my direction and personally reviewed by me in its entirety. I confirm that the note above accurately reflects all work, treatment, procedures, and medical decision making performed by me.
[2018-12-06 21:49] LABS: Hematocrit (blood only) 42.6 % (42-52); Hemoglobin 16.1 g/dL (14.0-18.0); Mean Corpuscular Hgb Conc 37.7 g/dL (32-36); Mean Corpuscular Volume 80.7 fL (80-100); Platelet Count 264 K/uL (130-400); RDW Coefficient of Variation 12.8 % (11.5-14.5); Red Blood Count 4.93 M/uL (4.7-6.1); White Blood Count 12.61 K/uL (4.8-10.8)
[2018-12-06 21:52] LABS: Basophils # (auto) 0.05 K/uL (0-0.2); Basophils % (auto) 0.4 %; Eosinophils # (auto) 0.12 K/uL (0-0.5); Immature Granulocytes # (auto) 0.05 K/uL (0.00-0.02); Immature Granulocytes % (auto) 0.4 %; Lymphocytes % (auto) 14.3 %; Monocytes # (auto) 0.72 K/uL (0.11-0.59); Monocytes % (auto) 5.7 %; Neutrophils # (auto) 9.87 K/uL (1.4-6.5); Neutrophils % (auto) 78.2 %
[2018-12-06 22:27] LABS: RBC Morphology Unremarkable
[2018-12-07] MEDS ORDERED: NITROGLYCERIN SL 0.4 MG/TAB TAB SL PRN (00:45)
--- NOTE | 2018-12-07 01:23 | History and Physical Report ---
DATE OF ADMISSION: 12/06/2018 CHIEF COMPLAINT: Intentional drug overdose. HISTORY OF PRESENT ILLNESS: A 33-year-old male with past medical history significant for manic bipolar disorder, depression, anxiety presents with multiple drug overdose. Per EMS, the patient was found on the road and was stating that he does not want to be like this anymore. The patient says that he took 21 Trileptal 300 mg tablets and 5 Lexapro 10 mg tablets and 50 mg hydroxyzine. As per the notes, the patient says he felt manic and has been not able to sleep for the past 2 days. Presently, the patient is somewhat drowsy but arousable, he says has some elbow because he fell on the on it and denies any chest pain or shortness of breath, has some mild headache, complains of abdominal pain he says because he took the pills on his empty stomach. Denies any alcoholism. Says he is feeling hungry and thirsty.Denies any cough or shortness of breath or recent fevers. He is living with his friends. He did have drugs last week, but no IV drugs. Says he smokes about a pack a day, currently resting comfortably and hemodynamically stable.Says his mood is better now. ALLERGIES: CHLORPROMAZINE, Vortioxetine, CITALOPRAM, NALTREXONE, HALOPERIDOL. PAST MEDICAL HISTORY: As mentioned above. PAST SURGICAL HISTORY: None as per patient. MEDICATIONS: The patient is currently Lexapro 10 mg p.o. daily, Vistaril 25 mg p.o. t.i.d., oxcarbazepine 300 mg p.o. b.i.d., oxcarbazepine 150 mg p.o. a.m. and at bedtime. FAMILY HISTORY: The patient says his mother has heart disease. SOCIAL HISTORY: Smokes 1 pack a day. denies any alcohol use. Drugs,takes drugs, but denies any IV drug abuse. REVIEW OF SYMPTOMS: As per HPI. Could not complete review of systems as the patient is somewhat drowsy and difficult to get answers. PHYSICAL EXAMINATION: GENERAL: The patient is of moderate build, not in acute distress. VITAL SIGNS: Temperature 36.8, pulse 80, respiratory rate 17, blood pressure 152/94, oxygen 100% room air. HEENT: No pallor, no icterus. Pupils equal, round, and reactive to light. NECK: No neck masses. CARDIOVASCULAR: S1, S2 heard, regular rate and rhythm, no murmur, no gallop. RESPIRATORY SYSTEM: Normal AP diameter. No accessory muscle use. No wheezing, no crackles. ABDOMEN: Soft, bowel sounds present. Mild discomfort. No guarding, no rigidity. CENTRAL NERVOUS SYSTEM: Alert and oriented x3. Nonfocal. EXTREMITIES: No edema, no erythema. LABS: WBC 12.6, hemoglobin 16.1, hematocrit 42.6, platelets 264. PT 19.7, INR 1, APTT 24.5. Sodium 137, potassium 3.5, chloride 103, bicarbonate 24, BUN 8, creatinine 0.8, serum glucose 98, calcium 8.5, magnesium 2, total bilirubin 0.3, AST 27, ALT 32, alkaline phosphatase is 92, total creatinine kinase 583, troponin I less than 0.015. TSH 1.5. Salicylate level is 2.3. Tylenol less than 2. Urine drug screen positive for marijuana. Ethyl alcohol less than 3. Chest x-ray: No acute disease in the chest. EKG: Normal sinus rhythm, rate of 85. QRS 94, QTC 440. No acute St changes seen. ASSESSMENT AND PLAN: This is a 33-year-old male who presents with multiple drug overdose. 1. Multiple drug overdose, intentional with 21 tablet of Trileptal 300 mg, 5 tablets of Lexapro 10 mg, 50 mg of hydroxyzine. His labs are fine and EKG is okay. Somewhat drowsy, spoke with poison control, they recommended supportive care. We will place on IV fluids with normal saline 125 mL per hour. Repeat labs in a.m. Repeat EKG in a.m. Monitor on tele floor. The patient says he took these medication to not feel this way. Willl consult psychiatry in a.m. for further recommendations.One-one We will hold his psych medication for now. 2. Mild rhabdomyolysis, elevated creatinine kinase 583, on IV fluids, will repeat labs in a.m. 3. History of manic bipolar disorder and depression and anxiety. Holding his home medications. Await psych input. 4. Deep venous thrombosis prophylaxis. SCDs. 5. Disposition: Close monitoring in tele floor. Level 1 full code. MTDD
[2018-12-07] MEDS: SODIUM CHLORIDE 0.9% 1000ML 1,000 ML IV SCH ×3 (01:45→16:00)
[2018-12-07 05:49] LABS: Basophils # (auto) 0.04 K/uL (0-0.2); Basophils % (auto) 0.5 %; Eosinophils # (auto) 0.27 K/uL (0-0.5); Eosinophils % (auto) 3.1 %; Hemoglobin 14.2 g/dL (14.0-18.0); Immature Granulocytes # (auto) 0.03 K/uL (0.00-0.02); Immature Granulocytes % (auto) 0.3 %; Lymphocytes # (auto) 2.88 K/uL (1.2-3.4); Lymphocytes % (auto) 33.5 %; Mean Corpuscular Hgb Conc 37.4 g/dL (32-36); Mean Corpuscular Volume 81.2 fL (80-100); Mean Platelet Volume 9.7 fL (7.4-10.4); Monocytes # (auto) 0.58 K/uL (0.11-0.59); Monocytes % (auto) 6.7 %; Neutrophils % (auto) 55.9 %; Platelet Count 240 K/uL (130-400); RDW Coefficient of Variation 12.8 % (11.5-14.5); RDW Standard Deviation 38.2 fL (36.4-46.3); Red Blood Count 4.68 M/uL (4.7-6.1)
[2018-12-07 06:30] LABS: Albumin Level 3.4 gm/dl (3.4-5.0); BUN Creatinine Ratio 7.7 (10-20); Bilirubin Direct 0.1 mg/dl (0-0.2); Calcium 8.2 mg/dl (8.5-10.1); Creatinine Clr Calc Pharmacy 193.6 ml/min; Est GFR (African American) 140.5; Est GFR (Non-African American) 121.2; Magnesium 2.1 mg/dl (1.8-2.4); Potassium 3.7 mmol/L (3.5-5.1)
[2018-12-07 06:33] LABS: Bilirubin,Total 0.6 mg/dl (0.2-1); Total Protein 6.5 gm/dl (6.4-8.2)
--- NOTE | 2018-12-07 11:27 | Hospitalist Progress Note ---
Date of Service December 07, 2018 Assessment & Plan (1) Medication overdose: This is a 33-year-old male who presents with multiple drug overdose. Medication drug overdose (multiple medications) -intentional overdose attempt with 21 tablet of Trileptal 300 mg, 5 tablets of Lexapro 10 mg, 50 mg of hydroxyzine -continue IV fluids 125 ml/hr -continue to monitor on telemetry -continue 1 to 1 observation and suicide checks -psychiatry consultation rhabdomyolysis - elevated creatinine kinase 583 on admission and downtrended to 485 while on IV fluids -continue IV fluids 125 ml/hr History of manic bipolar disorder and depression and anxiety -hold home psychiatry medications for now given recent intentional overdose -appreciate psychiatry consultation Deep venous thrombosis prophylaxis. SCDs. Full Code Subjective Patient seen and examined at the bedside. He is awake and alert and oriented. Patient admits to taking overdose of medications because he wanted to "end it" and was reporting recently of having orion and confirmed suicidal ideations. he reports history of psychosis. Patient denies chest pain or shortness of breath or palpitations. Denies abdomen pain. No vomiting today. Last vomiting episode was as per patient patient was prior to the hospital presentation. Patient reports he has been off alcohol since June 2018. Physical Exam Constitutional: WD/WN, vitals as above Eyes: PERRL, conjunctivae normal, anicteric sclerae EOM intact bilaterally ENMT: external ear and nose normal, oropharynx normal Neck: trachea midline, no thyromegaly normal visual inspection Respiratory: normal respiratory effort, lungs clear to auscultation Cardiovascular: RRR, no murmur, no edema Gastrointestinal (Abdomen): normal bowel sounds, soft, nontender, no hepatosplenomegaly Musculoskeletal: no cyanosis or clubbing, extremities motor strength 5/5 Head/Neck/Chest: normocephalic and head atraumatic Neurologic: PERRL, EOMI, accommodation nl, no face palsy, no dysarthria CN's II-XI intact bilaterally Psychiatric: Orientation: alert, oriented x 3 and cooperative Affect: euthymic affect Results & Data Vital Signs (Past 12 Hours) Vital Signs Temp Pulse Pulse Pulse Resp BP BP 12/07/18 10:48 37.1 C 69 20 133/80 12/07/18 05:31 36.5 C 79 18 133/75 12/07/18 00:25 36.6 C 86 24 144/83 H 12/06/18 23:58 65 18 111/56 L Pulse Ox 12/07/18 10:48 98 12/07/18 05:31 98 12/07/18 00:25 100 12/06/18 23:58 98 (1) Medication overdose Encounter type: initial encounter Injury intent: intentional self-harm Qualified Code(s): T50.902A - Poisoning by unspecified drugs, medicaments and biological substances, intentional self-harm, initial encounter
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
[2018-12-08] MEDS: SODIUM CHLORIDE 0.9% 1000ML 1,000 ML IV SCH ×3 (00:27→16:51)
[2018-12-08 06:20] LABS: Basophils # (auto) 0.05 K/uL (0-0.2); Basophils % (auto) 0.8 %; Eosinophils # (auto) 0.26 K/uL (0-0.5); Eosinophils % (auto) 3.9 %; Hematocrit (blood only) 38.8 % (42-52); Hemoglobin 14.4 g/dL (14.0-18.0); Immature Granulocytes # (auto) 0.02 K/uL (0.00-0.02); Immature Granulocytes % (auto) 0.3 %; Lymphocytes # (auto) 2.57 K/uL (1.2-3.4); Mean Corpuscular Hgb Conc 37.1 g/dL (32-36); Mean Corpuscular Volume 81.7 fL (80-100); Mean Platelet Volume 9.8 fL (7.4-10.4); Monocytes # (auto) 0.44 K/uL (0.11-0.59); Monocytes % (auto) 6.7 %; Neutrophils # (auto) 3.25 K/uL (1.4-6.5); Neutrophils % (auto) 49.3 %; Platelet Count 244 K/uL (130-400); RDW Coefficient of Variation 12.8 % (11.5-14.5); RDW Standard Deviation 38.3 fL (36.4-46.3); Red Blood Count 4.75 M/uL (4.7-6.1); White Blood Count 6.59 K/uL (4.8-10.8)
[2018-12-08 09:47] LABS: Albumin Level 3.5 gm/dl (3.4-5.0); BUN Creatinine Ratio 6.5 (10-20); Calcium 8.6 mg/dl (8.5-10.1); Creatinine Clr Calc Pharmacy 172.4 ml/min; Est GFR (Non-African American) 115.6
[2018-12-08 09:50] LABS: Albumin Globulin Ratio 1.1 (0.9-2); Bilirubin,Total 0.2 mg/dl (0.2-1); Globulin 3.1 gm/dl (2.5-4.0); Total Protein 6.6 gm/dl (6.4-8.2)
--- NOTE | 2018-12-08 14:36 | Hospitalist Progress Note ---
Date of Service December 08, 2018 Assessment & Plan (1) Medication overdose: This is a 33-year-old male who presents with multiple drug overdose. Medication drug overdose (multiple medications) -intentional overdose attempt with 21 tablet of Trileptal 300 mg, 5 tablets of Lexapro 10 mg, 50 mg of hydroxyzine -continue IV fluids 125 ml/hr -continue to monitor on telemetry -continue 1 to 1 observation and suicide checks -psychiatry consultation 12/07/18 "Pt should not be permitted to leave AMA until final discharge disposition decision has been determined. Will continue to follow with primary medical team until patient is medically cleared" -patient may require inpatient psychiatry admission when medically cleared rhabdomyolysis - elevated creatinine kinase 583 on admission and downtrended to 485 while on IV fluids as of 12/07/18 -while on IV creatinine kinase is 453 -continue IV fluids 125 ml/hr History of manic bipolar disorder and depression and anxiety -hold home psychiatry medications for now given recent intentional overdose -appreciate psychiatry consultation Deep venous thrombosis prophylaxis. SCDs. Full Code Subjective Patient has been cooperative with staff. He remains on the telemetry and 1 to 1 observation. The creatinine kinase has not dropped significantly with current IV fluids of 125 cc/hr. Patient understands that is he is staying on hospitalist medical service for now. patient reports that behavioral health service has not seen him today but they came by yesterday. patient denies lightheadedness. no chest pain. no shortness of breath. no vomiting. no other physical concerns. Physical Exam Constitutional: WD/WN, vitals as above Eyes: PERRL, conjunctivae normal, anicteric sclerae EOM intact bilaterally ENMT: external ear and nose normal, oropharynx normal Neck: trachea midline, no thyromegaly normal visual inspection Respiratory: normal respiratory effort, lungs clear to auscultation Cardiovascular: RRR, no murmur, no edema Gastrointestinal (Abdomen): normal bowel sounds, soft, nontender, no hepatosplenomegaly Musculoskeletal: no cyanosis or clubbing, extremities motor strength 5/5 Head/Neck/Chest: normocephalic and head atraumatic Neurologic: PERRL, EOMI, accommodation nl, no face palsy, no dysarthria CN's II-XI intact bilaterally Psychiatric: Orientation: alert, oriented x 3 and cooperative Affect: euthymic affect Results & Data Vital Signs (Past 12 Hours) Vital Signs Temp Pulse Resp BP Pulse Ox 12/08/18 11:31 36.9 C 61 18 104/57 L 97 12/08/18 06:30 36.9 C 58 L 18 122/77 98 12/08/18 03:14 36.7 C 55 L 19 116/71 97 (1) Medication overdose Encounter type: initial encounter Injury intent: intentional self-harm Qualified Code(s): T50.902A - Poisoning by unspecified drugs, medicaments and biological substances, intentional self-harm, initial encounter
[2018-12-09] MEDS: SODIUM CHLORIDE 0.9% 1000ML 1,000 ML IV SCH ×2 (01:10→09:15)
[2018-12-09 06:22] LABS: Basophils # (auto) 0.07 K/uL (0-0.2); Basophils % (auto) 0.9 %; Eosinophils % (auto) 3.9 %; Hemoglobin 14.8 g/dL (14.0-18.0); Immature Granulocytes # (auto) 0.02 K/uL (0.00-0.02); Immature Granulocytes % (auto) 0.3 %; Lymphocytes # (auto) 3.28 K/uL (1.2-3.4); Lymphocytes % (auto) 42.6 %; Mean Corpuscular Volume 82.1 fL (80-100); Monocytes # (auto) 0.52 K/uL (0.11-0.59); Monocytes % (auto) 6.8 %; Neutrophils # (auto) 3.51 K/uL (1.4-6.5); Neutrophils % (auto) 45.5 %; Platelet Count 260 K/uL (130-400); RDW Coefficient of Variation 12.9 % (11.5-14.5); RDW Standard Deviation 38.4 fL (36.4-46.3); Red Blood Count 4.87 M/uL (4.7-6.1)
[2018-12-09 07:01] LABS: Albumin Level 3.4 gm/dl (3.4-5.0); BUN Creatinine Ratio 8.9 (10-20); Calcium 8.4 mg/dl (8.5-10.1); Creatinine Clr Calc Pharmacy 188.1 ml/min; Est GFR (African American) 138.9; Est GFR (Non-African American) 119.9; Potassium 4.2 mmol/L (3.5-5.1)
[2018-12-09 07:03] LABS: Bilirubin,Total 0.5 mg/dl (0.2-1); Globulin 3.3 gm/dl (2.5-4.0); Total Protein 6.7 gm/dl (6.4-8.2)
--- NOTE | 2018-12-09 10:27 | Hospitalist Progress Note ---
Date of Service December 09, 2018 Assessment & Plan (1) Medication overdose: This is a 33-year-old male who presents with multiple drug overdose. per Dr. Pacheco's notes: Medication drug overdose (multiple medications) -intentional overdose attempt with 21 tablet of Trileptal 300 mg, 5 tablets of Lexapro 10 mg, 50 mg of hydroxyzine -continue 1 to 1 observation and suicide checks - plan for inpatient Psych treatment patient medically stable for transfer to Acute Psych unit Rhabdomyolysis - elevated creatinine kinase 583 on admission and downtrended to 485 while on IV fluids as of 12/07/18 CPL normalized to 285 History of manic bipolar disorder and depression and anxiety -hold home psychiatry medications for now given recent intentional overdose - awaiting bed for inpatient Psych unit Deep venous thrombosis prophylaxis. SCDs. Full Code Subjective ff up for drug overdose seen resting in bed, sitting up not in distress, comfortable 1:1 observation in progress, CALIXTO Ortega at bedside through encounter states he feels fine overall denies headache, dizziness, chest pain, dyspnea, palpitations states mood is fine, denies feeling depressed/anxious, no suicidal ideations denies other symptoms Review of Systems Review of Systems: All systems reviewed & are unremarkable except as noted in HPI & below Physical Exam Physical Exam: General- oriented x 3, not in distress, speaks in sentences with no effort or accessory muscle use Eyes- anicteric Neck- no JVD Lungs- clear breath sounds bilaterally, no rales/wheezes Heart- normal rate, regular rhythm; no murmurs Abdomen- normal bowel sounds, nondistended, soft, nontender Extremities- no pretibial edema, no calf tenderness Neuro- alert, oriented x 3; no gross focal neurologic deficits Skin- warm & dry Results & Data Vital Signs (Past 12 Hours) Vital Signs Temp Pulse Pulse Resp BP Pulse Ox 12/09/18 07:00 53 L 12/09/18 03:25 36.4 C L 57 L 18 147/83 H 96 12/09/18 00:00 50 L 12/08/18 23:28 36.3 C L 58 L 18 136/76 98 Laboratory Results Laboratory Results - last 24 hr 12/06/18 12/09/18 12/09/18 20:48 06:00 06:00 WBC 7.70 RBC 4.87 Hgb 14.8 Hct 40.0 L MCV 82.1 MCH 30.4 MCHC 37.0 H RDW Std Deviation 38.4 RDW Coeff of Virgilio 12.9 Plt Count 260 MPV 10.0 Immature Gran % (Auto) 0.3 Neut % (Auto) 45.5 Lymph % (Auto) 42.6 Sibley % (Auto) 6.8 Eos % (Auto) 3.9 Baso % (Auto) 0.9 Immature Gran # (Auto) 0.02 Neut # (Auto) 3.51 Lymph # (Auto) 3.28 Sibley # (Auto) 0.52 Eos # (Auto) 0.30 Baso # (Auto) 0.07 Sodium 140 Potassium 4.2 Chloride 109 H Carbon Dioxide 27 Anion Gap 4.0 BUN 7 Creatinine 0.76 Est Cr Clr Drug Dosing 188.1 Est GFR ( Amer) 138.9 Est GFR (Non-Af Amer) 119.9 BUN/Creatinine Ratio 8.9 L Glucose 84 Calcium 8.4 L Total Bilirubin 0.5 AST 18 ALT 30 Alkaline Phosphatase 87 Total Creatine Kinase 285 Total Protein 6.7 Albumin 3.4 Globulin 3.3 Albumin/Globulin Ratio 1.0 U Marijuana THC Carboxy 261 A (1) Medication overdose Encounter type: initial encounter Injury intent: intentional self-harm Qualified Code(s): T50.902A - Poisoning by unspecified drugs, medicaments and biological substances, intentional self-harm, initial encounter
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
== END 2018-12-09 15:45 | DRG 918 ==
LOC: ED 20:02 → SUATTDRO 23:19 → 2E 23:19

== ENCOUNTER 2021-12-22 03:54 | Inpatient (IN) ==
[2021-12-22] MEDS ORDERED: levETIRAcetam 1,000 MG in 0.9 % SODIUM CHLORIDE 100 ML IV STA (04:26)
--- NOTE | 2021-12-22 04:53 | Emergency Department Note ---
Impression & Plan Seizure Admit to the [facility] ED Provider Note NAME: GINA KEENE JR AGE: 36 SEX: M ARRIVES VIA: Ambulance INFORMANT: Patient and EMS ED PROVIDER(S): Clara Cutler DO CHIEF COMPLAINT: Seizure PLAN: Disposition: Admit to the [facility] Condition: Good MEDICAL DECISION MAKING: This is a 36-year-old male patient who had a seizure while sleeping tonight. It lasted for approximately 2 minutes. Patient vomited afterwards. Patient was just seen here 24 hours ago with another seizure. The patient does not have a history of seizures. He was directed to start taking Keppra upon discharge from his visit here yesterday but declined believing that it would interact with his psychiatric medications. The patient presented in a postictal state to the emergency department today. He was unwilling to start anticonvulsant medica tions again here today until I discussed the interactions with pharmacy. This was performed and okayed by pharmacy. The patient was started on IV Keppra. I discussed the case with the [facility] service and they will evaluate the patient for status epilepticus and discussed with neurology. Triage Nursing notes reviewed and agree with them. Additional history obtained from his girlfriend who arrived at the bedside. Prior medical records reviewed Vital Signs: reviewed and unremarkable Differential diagnosis: Tonic-clonic seizure; nighttime seizures; ER treatment provided: Seizure precautions IV Keppra Diagnostics interpreted by me: ECG: Normal sinus rhythm at a rate of [address] segment elevation or signs of ischemia. There is no ectopy. Cardiac Monitoring: Normal sinus rhythm at 93 Laboratory studies: See below HPI: 36/M arrives for evaluation of seizure. The patient awoke from sleep having a seizure that lasted for approximately 2 minutes. Upon EMS arrival, the patient was postictal. He did have an episode of vomiting. Patient suffered a seizure yesterday for which she was evaluated here in the emergency department. At that time, they request that he start taking Keppra but the patient declined believing that Keppra would interact with his antipsychotic medications. ROS: See above HPI for pertinent positives & negatives. A total of 10 systems reviewed and were otherwise negative. PAST MEDICAL HISTORY:Psychosis PAST SURGICAL HISTORY:See Below FAMILY HISTORY:See Below SOCIAL HISTORY:The patient lives with his girlfriend. HOME MEDICATIONS: Seroquel and Lexapro ALLERGIES: See list VITALS:See Below PHYSICAL EXAMINATION: HEENT: Head - normocephalic and atraumatic Pupils are equal, round, and reactive to light. Extraocular eye muscles are intact, and sclera are anicteric. Nose - moist nasal mucosa without discharge. Mouth - moist buccal mucosa. Oropharynx is nonerythematous and there is no tonsillar exudate or edema noted. Neck: Supple; no cervical lymphadenopathy or nuchal rigidity- Heart: Regular rate and rhythm. There is a normal S1 and S2 with no murmurs, clicks, or gallops appreciated. Lungs: Clear to auscultation bilaterally with no wheezes, rales, or rhonchi. Abdomen: Soft, completely nontender, nondistended, with good bowel sounds. There are no palpable pulsatile masses or hepatosplenomegaly. There is no guarding, rigidity, or rebound noted. Extremities: No evidence of cyanosis, clubbing, or edema. There are easily palpable peripheral pulses. Skin: warm and dry with good turgor and no rashes. ED COURSE: Times/Reassessments: 0400: The patient was evaluated in room B7. A complete history and physical was performed. Records from yesterday's visit were reviewed. An order was placed for continuous cardiac monitoring. The patient was in a normal sinus rhythm at a rate of 93. A twelve-lead EKG was obtained as described as above. Seizure precautions were taken. I did discuss the case with the pharmacist here at the hospital and he agrees that the patient can take IV Keppra without fear of interaction with his Seroquel or Lexapro. I discussed the case with the [facility] hospitalist and they will evaluate for further management. Clara Cutler DO Past Med/Surg History Medical History Anxiety Heroin abuse Manic bipolar I disorder No chronic diseases present Suicide attempt Surgical History No significant past surgical history Social History (System 12/21/21 @ 10:03 by Oneyda Rizvi) Smoking Status: Current every day smoker Tobacco Type: Cigarettes and E-cigarettes / Vaping Cigarettes Per Day: 20; Second Hand Exposure: No; Tobacco Cessation Education Requested by Patient: No Hx Alcohol Use: Yes Hx Substance Use: Yes Last Used Substance Other:: States a long time ago Preferred Language: Nepali Communication Ability: Effective Pen Tender Required: No Beliefs That Will Affect Care: None Current Living Situation: Alone Current Living Situation Comment: Lives with friends Other Information That Helps Us Care for You: No Feels Safe at Home: Yes Safety Concerns: Feels Safe At This Time Assistive Devices: None Assistive Devices Comment: Pt was unable to walk due to muscle pain Allergies Allergies Allergy/AdvReac Type Severity Reaction Status Date / Time chlorpromazine Allergy Severe TONGUE Verified 12/21/21 10:03 SWELLING vortioxetine Allergy Unknown FACIAL Verified 12/21/21 10:03 SWELLING citalopram AdvReac Severe suicidal Verified 12/21/21 10:03 naltrexone AdvReac Severe THROAT Verified 12/21/21 10:03 SWELLING haloperidol AdvReac Intermediate twitching Verified 12/21/21 10:03 carbamazepine [From Tegretol] AdvReac Unknown COUNTER Verified 12/21/21 10:03 ACTS WITH CURRENT MEDS. gabapentin AdvReac Depression Unverified 12/22/21 06:40 Home Meds Home Medications Medication Instructions Recorded Confirmed hydroxyzine pamoate 25 mg capsule 25 mg PO QID PRN 11/01/21 12/22/21 escitalopram oxalate 5 mg tablet 5 mg PO DAILY 12/21/21 12/22/21 quetiapine 300 mg tablet 600 mg PO HS 12/21/21 12/22/21 cannabidiol 100 mg/mL oral solution 100 mg PO DAILY PRN 12/22/21 12/22/21 meloxicam 15 mg tablet 15 mg PO QAM 12/22/21 12/22/21 tramadol 50 mg tablet 50 mg PO DAILY PRN 12/22/21 12/22/21 Results & Data (ED) Vital Signs Vital Signs - 24 hr 12/22/21 04:02 Temperature 36.8 C Temperature Source Oral Pulse Rate 93 H Respiratory Rate 18 Respiratory Effort / Characteristics Non-Labored Spontaneous Respiratory Depth Normal Respiratory Pattern Regular Blood Pressure 132/73 Blood Pressure Mean 92 Blood Pressure Position Sitting Pulse Oximetry 96 Oxygen Delivery Method Room Air Sepsis Recent Fever Within 48 Hours No Sepsis New/Unexplained Change in Mental Status No Sepsis Action Taken by Nursing No Action Required Laboratory Data Result diagrams: 12/23/21 07:29 12/23/21 07:29 Lab Results 12/22/21 12/22/21 12/22/21 Range/Units 04:47 04:47 04:47 WBC 13.58 H (4.8-10.8) K/uL RBC 4.46 L (4.7-6.1) M/uL Hgb 14.1 (14.0-18.0) g/dL Hct 37.9 L (42-52) % MCV 85.0 (80-100) fL MCH 31.6 (25-34) pg MCHC 37.2 H (32-36) g/dL RDW Std Deviation 39.2 (36.4-46.3) fL RDW Coeff of Virgilio 12.7 (11.5-14.5) % Plt Count 254 (130-400) K/uL MPV 9.7 (7.4-10.4) fL Immature Gran % (Auto) 0.2 % Neut % (Auto) 82.0 % Lymph % (Auto) 10.8 % Calvert % (Auto) 5.7 % Eos % (Auto) 1.2 % Baso % (Auto) 0.1 % Neut # (Auto) 11.12 H (1.4-6.5) K/uL Lymph # (Auto) 1.47 (1.2-3.4) K/uL Calvert # (Auto) 0.78 H (0.11-0.59) K/uL Eos # (Auto) 0.16 (0-0.5) K/uL Baso # (Auto) 0.02 (0-0.2) K/uL Immature Gran # (Auto) 0.03 H (0.00-0.02) K/uL Sodium 135 L (136-145) mmol/L Potassium 3.8 (3.5-5.1) mmol/L Chloride 104 (98-107) mmol/L Carbon Dioxide 25 (21-32) mmol/L Anion Gap 6 (3-11) BUN 9 (6-23) mg/dl Creatinine 0.74 (0.6-1.4) mg/dl Est Cr Clr Drug Dosing 184.8 ml/min Est GFR ( Amer) 137.5 ml/min Est GFR (Non-Af Amer) 118.7 ml/min BUN/Creatinine Ratio 12.2 (10-20) Glucose 110 H (70-99(Fasting)) mg/dl Calcium 8.9 (8.5-10.1) mg/dl Magnesium (1.7-2.4) mg/dl Total Bilirubin 0.8 (0.2-1.0) mg/dl AST 23 (13-39) U/L ALT 19 (7-52) U/L Alkaline Phosphatase 64 (34-104) U/L Total Protein 6.9 (6.0-8.3) gm/dl Albumin 4.2 (3.4-5.0) gm/dl Globulin 2.7 (2.5-4.0) gm/dl Albumin/Globulin Ratio 1.6 (0.9-2) SARS-CoV-2, RNA, NAAT NEGATIVE (NEGATIVE) 12/22/21 Range/Units 04:47 WBC (4.8-10.8) K/uL RBC (4.7-6.1) M/uL Hgb (14.0-18.0) g/dL Hct (42-52) % MCV (80-100) fL MCH (25-34) pg MCHC (32-36) g/dL RDW Std Deviation (36.4-46.3) fL RDW Coeff of Virgilio (11.5-14.5) % Plt Count (130-400) K/uL MPV (7.4-10.4) fL Immature Gran % (Auto) % Neut % (Auto) % Lymph % (Auto) % Calvert % (Auto) % Eos % (Auto) % Baso % (Auto) % Neut # (Auto) (1.4-6.5) K/uL Lymph # (Auto) (1.2-3.4) K/uL Calvert # (Auto) (0.11-0.59) K/uL Eos # (Auto) (0-0.5) K/uL Baso # (Auto) (0-0.2) K/uL Immature Gran # (Auto) (0.00-0.02) K/uL Sodium (136-145) mmol/L Potassium (3.5-5.1) mmol/L Chloride (98-107) mmol/L Carbon Dioxide (21-32) mmol/L Anion Gap (3-11) BUN (6-23) mg/dl Creatinine (0.6-1.4) mg/dl Est Cr Clr Drug Dosing ml/min Est GFR ( Amer) ml/min Est GFR (Non-Af Amer) ml/min BUN/Creatinine Ratio (10-20) Glucose (70-99(Fasting)) mg/dl Calcium (8.5-10.1) mg/dl Magnesium 2.0 (1.7-2.4) mg/dl Total Bilirubin (0.2-1.0) mg/dl AST (13-39) U/L ALT (7-52) U/L Alkaline Phosphatase (34-104) U/L Total Protein (6.0-8.3) gm/dl Albumin (3.4-5.0) gm/dl Globulin (2.5-4.0) gm/dl Albumin/Globulin Ratio (0.9-2) SARS-CoV-2, RNA, NAAT (NEGATIVE) Administered Medications Acetaminophen (Acetaminophen 325 Mg Tab) 650 mg PO Q4H PRN PRN Reason: Pain or Fever Stop: 01/21/22 10:51 Last Admin: 12/23/21 09:12 Dose: 650 mg Documented by: [id number] Admin: 12/22/21 19:51 Dose: 650 mg Documented by: [id number] Admin: 12/22/21 16:37 Dose: 650 mg Documented by: [id number] Enoxaparin Sodium (Enoxaparin Inj 40 Mg/0.4 Ml Syr) 40 mg SQ QAM [facility] Stop: 01/21/22 10:59 Last Admin: 12/23/21 09:11 Dose: 40 mg Documented by: [id number] Admin: 12/22/21 12:46 Dose: 40 mg Documented by: [id number] Escitalopram Oxalate (Escitalopram Oxalate 10 Mg Tab) 5 mg PO DAILY [facility] Stop: 01/21/22 10:59 Last Admin: 12/23/21 09:12 Dose: 5 mg Documented by: [id number] Admin: 12/22/21 12:44 Dose: 5 mg Documented by: [id number] Hydroxyzine HCl (Hydroxyzine Hcl 25 Mg Tab) 25 mg PO QID PRN PRN Reason: Anxiety Stop: 01/21/22 10:51 Last Admin: 12/23/21 09:12 Dose: 25 mg Documented by: [id number] Ceftriaxone Sodium 2,000 mg/ (Dextrose) 70 mls @ 100 mls/hr IV DAILY [facility]; Protocol Stop: 12/25/21 08:59 Last Infusion: 12/23/21 10:12 Dose: 0 mls/hr Documented by: [id number] Admin: 12/23/21 09:11 Dose: 100 mls/hr Documented by: [id number] Levetiracetam (Levetiracetam 500 Mg Tab) 500 mg PO BID [place] Stop: 01/21/22 20:59 Last Admin: 12/23/21 09:11 Dose: 500 mg Documented by: [id number] Admin: 12/22/21 21:56 Dose: 500 mg Documented by: [id number] Meloxicam (Meloxicam 7.5 Mg Tab) 15 mg PO QAM [facility] Stop: 01/21/22 10:51 Last Admin: 12/23/21 09:12 Dose: 15 mg Documented by: [id number] Admin: 12/22/21 12:45 Dose: 15 mg Documented by: [id number] Oxycodone HCl (Oxycodone Hcl Ir 5 Mg Tab (Immediate Release)) 5 mg PO Q4H PRN PRN Reason: Pain Stop: 01/05/22 10:51 Last Admin: 12/23/21 09:15 Dose: 5 mg Documented by: [id number] Admin: 12/23/21 04:44 Dose: 5 mg Documented by: [id number] Admin: 12/22/21 21:56 Dose: 5 mg Documented by: [id number] Admin: 12/22/21 16:37 Dose: 5 mg Documented by: [id number] Admin: 12/22/21 11:31 Dose: 5 mg Documented by: [id number] Quetiapine Fumarate (Quetiapine Fumarate 300 Mg Tablet) 600 mg PO HS [facility] Stop: 01/21/22 20:59 Last Admin: 12/22/21 21:56 Dose: 600 mg Documented by: [id number] Discontinued Medications Gadobutrol (Gadobutrol 65ml Vial) 10.9 ml IV ONCE ONE Stop: 12/22/21 17:55 Last Admin: 12/22/21 17:39 Dose: 10.9 ml Documented by: [id number] Levetiracetam 1,000 mg/ Sodium (Chloride) 110 mls @ 440 mls/hr IV NOW STA Stop: 12/22/21 04:40 Last Infusion: 12/22/21 05:25 Dose: 0 mls/hr Documented by: [id number] Admin: 12/22/21 05:01 Dose: 440 mls/hr Documented by: [id number] Lactated Ringer's (Lr) 1,000 mls @ 80 mls/hr IV .[id number] ONE Stop: 12/22/21 18:34 Last Infusion: 12/22/21 21:48 Dose: 0 mls/hr Documented by: [id number] Admin: 12/22/21 08:06 Dose: 80 mls/hr Documented by: [id number] Vancomycin HCl 2,000 mg/ (Sodium Chloride) 540 mls @ 200 mls/hr IV NOW ONE Stop: 12/23/21 11:11 Last Infusion: 12/23/21 11:38 Dose: 0 mls/hr Documented by: [id number] Admin: 12/23/21 09:11 Dose: 200 mls/hr Documented by: [id number] Discharge Plan Visit Data Chief Complaint: Seizure ED Provider: Clara Cutler Discharge Problem: Seizure Patient Disposition: Admitted As Inpatient Discharge Instructions Interventions: ED Discharge Assessment Last Done: 12/22/21 10:36
[2021-12-22 05:05] LABS: Basophils # (auto) 0.02 K/uL (0-0.2); Basophils % (auto) 0.1 %; Eosinophils # (auto) 0.16 K/uL (0-0.5); Eosinophils % (auto) 1.2 %; Hematocrit (blood only) 37.9 % (42-52); Hemoglobin 14.1 g/dL (14.0-18.0); Immature Granulocytes # (auto) 0.03 K/uL (0.00-0.02); Immature Granulocytes % (auto) 0.2 %; Lymphocytes # (auto) 1.47 K/uL (1.2-3.4); Lymphocytes % (auto) 10.8 %; Mean Corpuscular Hemoglobin 31.6 pg (25-34); Mean Corpuscular Hgb Conc 37.2 g/dL (32-36); Mean Platelet Volume 9.7 fL (7.4-10.4); Monocytes # (auto) 0.78 K/uL (0.11-0.59); Monocytes % (auto) 5.7 %; Neutrophils # (auto) 11.12 K/uL (1.4-6.5); Platelet Count 254 K/uL (130-400); RDW Coefficient of Variation 12.7 % (11.5-14.5); RDW Standard Deviation 39.2 fL (36.4-46.3); Red Blood Count 4.46 M/uL (4.7-6.1); White Blood Count 13.58 K/uL (4.8-10.8)
[2021-12-22 05:22] LABS: Albumin Globulin Ratio 1.6 (0.9-2); Albumin Level 4.2 gm/dl (3.4-5.0); BUN Creatinine Ratio 12.2 (10-20); Bilirubin,Total 0.8 mg/dl (0.2-1.0); Calcium 8.9 mg/dl (8.5-10.1); Creatinine Clr Calc Pharmacy 184.8 ml/min; Est GFR (African American) 137.5 ml/min; Est GFR (Non-African American) 118.7 ml/min; Globulin 2.7 gm/dl (2.5-4.0); Potassium 3.8 mmol/L (3.5-5.1); Total Protein 6.9 gm/dl (6.0-8.3)
[2021-12-22] MEDS ORDERED: LACTATED RINGER'S 1,000 ML IV ONE (06:05)
--- NOTE | 2021-12-22 06:47 | History & Physical Report ---
Date of Service December 22, 2021 Assessment & Plan (1) Seizure: Plan: mood disorder/anxiety disorder past history drug abuse Hyperglycemia rule out DM ongoing tobacco abuse Medical telemetry Keppra Stop home tramadol Rx given medications potential to lower seizure threshold MRI brain, EEG for seizure work-up Neurology consult Re: New onset seizures Check hemoglobin A1c Nicotine replacement therapy as needed DVT prophylaxis per Lovenox subcu Full code Patient sister requesting updates from providers. Ms. Bridgett Ann, contact #[phone]. Text document was generated using [employer] voice recognition software. It may contain grammatical or spelling errors. Kindly contact undersigned for clarification of any documentation item in question. History of Present Illness Chief Complaint: Seizure as per records Primary Care Provider: Dr. Logan History obtained from patient, family, and records. Limited history from patient secondary to obtunded state. Medical history significant for mood disorder, anxiety disorder, past history drug abuse, ongoing tobacco abuse. Last confinement December 2018 for intentional drug overdose. Yesterday morning patient noted by girlfriend to have grand mal seizures lasting about 2 minutes. 2 episodes at home as per report. History of brief seizure in 2005 attributed to Xanax medications. Patient seen at the emergency room yesterday. Keppra prescribed by ER provider. Patient voiced significant concerns regarding possible interactions with the home medications. Outpatient follow-up with PCP and Neurology recommended. Patient had another seizure witnessed by girlfriend earlier this morning. Subsequent emesis. Patient brought to the ER for evaluation. IV Keppra administered at the ER. 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 gabapentin AdvReac Depression Unverified 12/22/21 06:40 Home Medications Medication Instructions Recorded Confirmed Type hydroxyzine pamoate 25 mg capsule 25 mg PO QID PRN 11/01/21 12/22/21 History escitalopram oxalate 5 mg tablet 5 mg PO DAILY 12/21/21 12/22/21 History quetiapine 300 mg tablet 600 mg PO HS 12/21/21 12/22/21 History cannabidiol 100 mg/mL oral solution 100 mg PO DAILY PRN 12/22/21 12/22/21 History meloxicam 15 mg tablet 15 mg PO QAM 12/22/21 12/22/21 History tramadol 50 mg tablet 50 mg PO DAILY PRN 12/22/21 12/22/21 History Past Med/Surg History Medical History Anxiety Heroin abuse Manic bipolar I disorder No chronic diseases present Suicide attempt Surgical History No significant past surgical history Social History (System 12/21/21 @ 10:03 by Oneyda Rizvi) Smoking Status: Current every day smoker Tobacco Type: Cigarettes and E-cigarettes / Vaping Cigarettes Per Day: 15; Second Hand Exposure: No; Hx Alcohol Use: No Hx Substance Use: Yes Preferred Language: Greenlandic Communication Ability: Effective Sound Engineering Technician Required: No Beliefs That Will Affect Care: None Current Living Situation: Other Current Living Situation Comment: Lives with friends Feels Safe at Home: Yes Assistive Devices: None Review of Systems Review of Systems: Could not be reliably obtained secondary to obtunded state Physical Exam Physical Exam: GENERAL: Obtunded, obese, no respiratory distress SKIN: Normal color, warm HEENT: Partial alopecia, bespectacled, pink palpebral conjunctivae, no ptosis, dry buccal mucosa NECK : Supple, no tenderness CHEST : Decreased breath sounds, no tenderness HEART : RRR, no obvious murmurs ABDOMEN: Some distention, nontender EXTREMITIES : No LE swelling/tenderness, no other conspicuous deformities noted NEUROLOGIC : Obtunded, no facial asymmetry, rate and stance not assessed Results & Data Results & Data ([place]) Vital Signs (Past 12 Hours) Vital Signs Temp Pulse Resp BP Pulse Ox 12/22/21 06:00 85 18 144/87 H 96 12/22/21 05:30 77 16 147/86 H 98 12/22/21 05:00 86 16 126/87 95 12/22/21 04:30 85 20 136/68 95 12/22/21 04:02 36.8 C 93 H 18 132/73 96 Laboratory Results Laboratory Results WBC 13.58 K/uL (4.8-10.8) H 12/22/21 04:47 RBC 4.46 M/uL (4.7-6.1) L 12/22/21 04:47 Hgb 14.1 g/dL (14.0-18.0) 12/22/21 04:47 Hct 37.9 % (42-52) L 12/22/21 04:47 MCV 85.0 fL (80-100) 12/22/21 04:47 MCH 31.6 pg (25-34) 12/22/21 04:47 MCHC 37.2 g/dL (32-36) H 12/22/21 04:47 RDW Std Deviation 39.2 fL (36.4-46.3) 12/22/21 04:47 RDW Coeff of Virgilio 12.7 % (11.5-14.5) 12/22/21 04:47 Plt Count 254 K/uL (130-400) 12/22/21 04:47 MPV 9.7 fL (7.4-10.4) 12/22/21 04:47 Immature Gran % (Auto) 0.2 % 12/22/21 04:47 Neut % (Auto) 82.0 % 12/22/21 04:47 Lymph % (Auto) 10.8 % 12/22/21 04:47 [place] % (Auto) 5.7 % 12/22/21 04:47 Eos % (Auto) 1.2 % 12/22/21 04:47 Baso % (Auto) 0.1 % 12/22/21 04:47 Neut # (Auto) 11.12 K/uL (1.4-6.5) H 12/22/21 04:47 Lymph # (Auto) 1.47 K/uL (1.2-3.4) 12/22/21 04:47 [place] # (Auto) 0.78 K/uL (0.11-0.59) H 12/22/21 04:47 Eos # (Auto) 0.16 K/uL (0-0.5) 12/22/21 04:47 Baso # (Auto) 0.02 K/uL (0-0.2) 12/22/21 04:47 Immature Gran # (Auto) 0.03 K/uL (0.00-0.02) H 12/22/21 04:47 Sodium 135 mmol/L (136-145) L 12/22/21 04:47 Potassium 3.8 mmol/L (3.5-5.1) 12/22/21 04:47 Chloride 104 mmol/L (98-107) 12/22/21 04:47 Carbon Dioxide 25 mmol/L (21-32) 12/22/21 04:47 Anion Gap 6 (3-11) 12/22/21 04:47 BUN 9 mg/dl (6-23) 12/22/21 04:47 Creatinine 0.74 mg/dl (0.6-1.4) 12/22/21 04:47 Est Cr Clr Drug Dosing 184.8 ml/min 12/22/21 04:47 Est GFR ( Amer) 137.5 ml/min 12/22/21 04:47 Est GFR (Non-Af Amer) 118.7 ml/min 12/22/21 04:47 BUN/Creatinine Ratio 12.2 (10-20) 12/22/21 04:47 Glucose 110 mg/dl (70-99(Fasting)) H 12/22/21 04:47 Calcium 8.9 mg/dl (8.5-10.1) 12/22/21 04:47 Total Bilirubin 0.8 mg/dl (0.2-1.0) 12/22/21 04:47 AST 23 U/L (13-39) 12/22/21 04:47 ALT 19 U/L (7-52) 12/22/21 04:47 Alkaline Phosphatase 64 U/L (34-104) 12/22/21 04:47 Total Protein 6.9 gm/dl (6.0-8.3) 12/22/21 04:47 Albumin 4.2 gm/dl (3.4-5.0) 12/22/21 04:47 Globulin 2.7 gm/dl (2.5-4.0) 12/22/21 04:47 Albumin/Globulin Ratio 1.6 (0.9-2) 12/22/21 04:47 SARS-CoV-2, RNA, NAAT NEGATIVE (NEGATIVE) 12/22/21 04:47
[2021-12-22] MEDS ORDERED: LORazepam 2 MG/1 ML VIAL IV PRN (06:54)
[2021-12-22] MEDS: oxyCODONE HCL IR 5 MG TAB (IMMEDIATE RELEASE) PO PRN ×3 (11:31→21:56)
[2021-12-22] MEDS: ESCITALOPRAM OXALATE 10 MG TAB PO SCH (12:44)
[2021-12-22] MEDS: MELOXICAM 7.5 MG TAB PO SCH (12:45)
[2021-12-22] MEDS: ENOXAPARIN INJ 40 MG/0.4 ML SYR SQ SCH (12:46)
--- NOTE | 2021-12-22 13:20 | Electrocardiogram Report ---
Test Reason : Blood Pressure : / mmHG Vent. Rate : 081 BPM Atrial Rate : 081 BPM P-R Int : 146 ms QRS Dur : 092 ms QT Int : 388 ms P-R-T Axes : 043 064 049 degrees QTc Int : 450 ms Normal sinus rhythm Normal ECG When compared with ECG of 08-DEC-2018 06:35, No significant change was found Confirmed by Romie Valladares ([id number]) on 12/22/2021 1:19:48 PM Referred By: REFERRED SELF Confirmed By:Romie Valladares
[2021-12-22] MEDS: ACETAMINOPHEN 325 MG TAB PO PRN ×2 (16:37→19:51)
--- NOTE | 2021-12-22 16:56 | Hospitalist Progress Note ---
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 Last 1 was in the evening prior to arrival. Lasted for about 2 minutes, patient remained confused leading up to the admission in the ED. History of previous seizure in 2005 attributed to Xanax medication. Is being managed for the following: #. 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 [See above] Witnessed seizure. Admitting WBC elevated, likely secondary to acute distress. No signs of infection identified. Admitting prolactin 19.46. Admitting electrolytes fairly WNL. Admitting CT head: No acute findings. 12/22 brain MRI ordered, pending. U tox so far positive for marijuana barbiturates and opiates. Patient denies any drug abuse for " many years". In the past, he reports "all sorts of" drug. Continue with IV fluids, Keppra, await urine toxicology screen. Neurology consulted, await recommendations. Await EEG. Tramadol on hold due to given possibility to lower seizure threshold. #. Other chronic medical conditions: Mood disorder/anxiety disorder/past history of drug abuse/ongoing tobacco abuse Continue with/resume home meds as and when appropriate. Nicotine replacement therapy as needed DVT prophylaxis per Lovenox subcu Full code Patient sister Ms. Bridgett Ann, contact #[phone]. Admission and Anticipated Discharge Date Admission Date: December 22, 2021 Subjective Patient seen and examined at bedside as a follow-up of new onset seizure. Patient was sitting up in bed, on room air, NAD, no new acute events overnight. Patient denies any further seizure events while in hospital. Patient reports having his whole body ache at the time of bedside exam. No obvious trauma to his body. Bilateral tongue biting noted on exam. Patient denies headache or dizziness. Patient denies fever. Patient denies any acute changes in his bowel or bladder habits. Physical Exam Physical Exam: GENERAL: Alert and oriented x3. NAD, on RA. HEENT: No pallor, no icterus. Pupils equal, round and reactive to light. Oral mucosa moist. NECK: No JVD, no neck masses. HEART: S1 and S2 heard. Regular rate and rhythm. No murmur, no gallop. RESPIRATORY SYSTEM: Normal AP diameter. No accessory muscle use. No wheezing, no crackles. ABDOMEN: Soft, bowel sounds present, nontender, no distention. CENTRAL NERVOUS SYSTEM: No facial droop. Speech is clear. Obeys simple comman ds. Moves extremities. EXTREMITIES: No edema, no erythema seen. Results & Data Results & Data ([facility]) Vital Signs (Past 12 Hours) Vital Signs Pulse Pulse Resp BP BP Pulse Ox 12/22/21 15:51 93 H 20 126/80 98 12/22/21 14:40 95 H 20 120/70 98 12/22/21 12:43 88 18 126/72 98 12/22/21 11:33 94 H 18 136/87 98 12/22/21 10:36 100 H 20 138/88 96 12/22/21 09:30 101 H 24 134/67 12/22/21 09:00 96 H 21 96 12/22/21 08:30 95 H 17 103/65 97 12/22/21 08:01 83 20 106/68 97 12/22/21 08:00 96 H 33 H 97 12/22/21 07:30 104 H 17 152/85 H 98 12/22/21 07:00 77 16 123/71 98 12/22/21 06:30 95 H 18 135/80 98 12/22/21 06:00 85 18 144/87 H 96 12/22/21 05:30 77 16 147/86 H 98 12/22/21 05:00 86 16 126/87 95
[2021-12-22] MEDS ORDERED: GADOBUTROL 65ML VIAL IV ONE (17:54)
--- NOTE | 2021-12-22 18:12 | Magnetic Resonance Report ---
MRI OF THE BRAIN WITHOUT AND WITH IV CONTRAST SEIZURE PROTOCOL CLINICAL HISTORY: New onset seizures. COMPARISON STUDY: Head CT December 21, 2021. TECHNIQUE: Utilizing a 1.5 Alexus magnet and dedicated coil, multiplanar, multiecho imaging of the br ain was performed pre and postcontrast administration. IV administration of 10.9 mL of Gadavist cont rast was uneventful. Thin cut coronal T2 imaging was performed according to seizure protocol. FINDINGS: This exam is mildly compromised by motion artifact although is diagnostic. There are no foc i of restricted diffusion to suggest acute infarct. No acute intracranial hemorrhage, midline shift o r mass effect is present. Ventricular system is normal. Basal cisterns are patent. There are no extra -axial collections. Flow-voids for the major intracranial vessels are present. There is no intracrani al mass or pathologic enhancement. There is no MR evidence for mesial temporal sclerosis. Orbits are unremarkable. IMPRESSION: 1. Unremarkable MRI of the brain. 2. Exam mildly compromised by motion artifact. ACT 112: Negative or not required by law. Electronically signed by: Librado Rod M.D. 12/22/2021 6:09 PM
[2021-12-22] MEDS: levETIRAcetam 500 MG TAB PO SCH (21:56)
[2021-12-22] MEDS: QUEtiapine FUMARATE 300 MG TABLET PO SCH (21:56)
[2021-12-23] MEDS: oxyCODONE HCL IR 5 MG TAB (IMMEDIATE RELEASE) PO PRN ×5 (04:44→23:49)
[2021-12-23 04:50] LABS: Appearance Urine Clear (Clear); Bilirubin Urine Negative (Negative); Blood Urine Negative (Negative); Color Urine Dark Yellow; Glucose Urine UA Negative (Negative); Ketones Urine 2+ (Negative); Leukocyte Esterase Urine Negative (Negative); Nitrite Urine Negative (Negative); Protein Urine Negative (Negative); Specific Gravity Urine 1.019 (1.000-1.030); Urobilinogen Urine Negative (Negative)
[2021-12-23] MEDS ORDERED: VANCOMYCIN CONSULT ACTIVE PRN (08:08)
[2021-12-23] MEDS ORDERED: VANCOMYCIN HCL 1,500 MG in SODIUM CHLORIDE 0.9% 500 ML IV SCH (08:15)
--- NOTE | 2021-12-23 08:29 | Pharmacy Report ---
Pharmacy Vanc AUC Short Note - Date of Service December 23, 2021 - Assessment & Plan Assessment * 36 year old M receiving ceftriaxone and vancomycin empirically * PMH: IVDA Vancomycin * AUC/SAWYER is the preferred PK/PD target for vancomycin * AUC guided dosing is effective and associated with decreased risk of nephrotoxicity compared to traditional trough targets * Will dose via AUC * Empiric x48 hr currently ordered with last dose tomorrow evening. Will schedule a random level the following morning in the event that vancomycin is to continue, although no dose is currently scheduled following the level Plan * Empiric vancomycin - 2000 mg IV x1 then 1250 mg IV q12h x3 additional doses for now (empiric indication) * Random level with AM labs on 12/25 (ordered in case therapy is to continue) Pharmacy will continue to follow and will adjust dose/frequency as necessary. Thank you.
[2021-12-23] MEDS ORDERED: VANCOMYCIN HCL 2,000 MG in SODIUM CHLORIDE 0.9% 500 ML IV ONE (08:30)
[2021-12-23 08:44] LABS: Basophils # (auto) 0.03 K/uL (0-0.2); Basophils % (auto) 0.2 %; Eosinophils # (auto) 0.03 K/uL (0-0.5); Eosinophils % (auto) 0.2 %; Hematocrit (blood only) 37.1 % (42-52); Hemoglobin 13.6 g/dL (14.0-18.0); Immature Granulocytes # (auto) 0.05 K/uL (0.00-0.02); Immature Granulocytes % (auto) 0.3 %; Lymphocytes # (auto) 1.53 K/uL (1.2-3.4); Lymphocytes % (auto) 8.8 %; Mean Corpuscular Hemoglobin 30.6 pg (25-34); Mean Corpuscular Hgb Conc 36.7 g/dL (32-36); Mean Corpuscular Volume 83.6 fL (80-100); Mean Platelet Volume 10.2 fL (7.4-10.4); Monocytes # (auto) 1.37 K/uL (0.11-0.59); Monocytes % (auto) 7.9 %; Neutrophils # (auto) 14.32 K/uL (1.4-6.5); Neutrophils % (auto) 82.6 %; Platelet Count 242 K/uL (130-400); RDW Standard Deviation 39.1 fL (36.4-46.3); Red Blood Count 4.44 M/uL (4.7-6.1); White Blood Count 17.33 K/uL (4.8-10.8)
--- NOTE | 2021-12-23 09:04 | XRay Report ---
XR chest 1V portable CLINICAL HISTORY: r/o infection COMPARISON STUDY: Chest radiograph December 06, 2018. FINDINGS: No pneumothorax or pleural effusion is noted. There is no consolidation to suggest pneumoni a. Linear left basilar opacity represents atelectasis. Cardiac size is normal. Mediastinal contours a re normal. IMPRESSION: No acute cardiopulmonary findings. Linear left basilar opacity suggestive of atelectasis . ACT 112: Negative or not required by law. Electronically signed by: Librado Rod M.D. 12/23/2021 9:02 AM
[2021-12-23 09:06] LABS: Calcium 8.8 mg/dl (8.5-10.1); Est GFR (African American) 138.3 ml/min; Est GFR (Non-African American) 119.3 ml/min; Potassium 3.7 mmol/L (3.5-5.1)
[2021-12-23] MEDS: ENOXAPARIN INJ 40 MG/0.4 ML SYR SQ SCH (09:11)
[2021-12-23] MEDS: levETIRAcetam 500 MG TAB PO SCH ×2 (09:11→20:03)
[2021-12-23] MEDS: cefTRIAXone SODIUM 2,000 MG in DEXTROSE 5% 50 ML IV SCH (09:11)
[2021-12-23] MEDS: ESCITALOPRAM OXALATE 10 MG TAB PO SCH (09:12)
[2021-12-23] MEDS: MELOXICAM 7.5 MG TAB PO SCH (09:12)
[2021-12-23] MEDS: ACETAMINOPHEN 325 MG TAB PO PRN ×2 (09:12→17:50)
[2021-12-23] MEDS: hydrOXYzine HCl 25 MG TAB PO PRN (09:12)
[2021-12-23 09:31] LABS: Magnesium 1.9 mg/dl (1.7-2.4); Phosphorus 1.8 mg/dl (2.5-4.9)
--- NOTE | 2021-12-23 09:43 | Electroencephalogram ---
EEG Procedure Note Date of Service December 23, 2021 Start / End Times Start Time: 811 End Time: 831 Referring Physician Ronan Adair MD History serial seizures of uncertain cause Home Medication List Medication Instructions Recorded Confirmed Type hydroxyzine pamoate 25 mg capsule 25 mg PO QID PRN 11/01/21 12/22/21 History escitalopram oxalate 5 mg tablet 5 mg PO DAILY 12/21/21 12/22/21 History quetiapine 300 mg tablet 600 mg PO HS 12/21/21 12/22/21 History cannabidiol 100 mg/mL oral solution 100 mg PO DAILY PRN 12/22/21 12/22/21 History meloxicam 15 mg tablet 15 mg PO QAM 12/22/21 12/22/21 History tramadol 50 mg tablet 50 mg PO DAILY PRN 12/22/21 12/22/21 History Inpatient Medication List Acetaminophen (Acetaminophen 325 Mg Tab) 650 mg PO Q4H PRN PRN Reason: Pain or Fever Stop: 01/21/22 10:51 Last Admin: 12/23/21 09:12 Dose: 650 mg Documented by: [id number] Admin: 12/22/21 19:51 Dose: 650 mg Documented by: [id number] Admin: 12/22/21 16:37 Dose: 650 mg Documented by: [id number] Enoxaparin Sodium (Enoxaparin Inj 40 Mg/0.4 Ml Syr) 40 mg SQ QAM [place] Stop: 01/21/22 10:59 Last Admin: 12/23/21 09:11 Dose: 40 mg Documented by: [id number] Admin: 12/22/21 12:46 Dose: 40 mg Documented by: [id number] Escitalopram Oxalate (Escitalopram Oxalate 10 Mg Tab) 5 mg PO DAILY [facility] Stop: 01/21/22 10:59 Last Admin: 12/23/21 09:12 Dose: 5 mg Documented by: [id number] Admin: 12/22/21 12:44 Dose: 5 mg Documented by: [id number] Hydroxyzine HCl (Hydroxyzine Hcl 25 Mg Tab) 25 mg PO QID PRN PRN Reason: Anxiety Stop: 01/21/22 10:51 Last Admin: 12/23/21 09:12 Dose: 25 mg Documented by: [id number] Ceftriaxone Sodium 2,000 mg/ (Dextrose) 70 mls @ 100 mls/hr IV DAILY [facility]; Protocol Stop: 12/25/21 08:59 Last Admin: 12/23/21 09:11 Dose: 100 mls/hr Documented by: [id number] Vancomycin HCl 2,000 mg/ (Sodium Chloride) 540 mls @ 200 mls/hr IV NOW ONE Stop: 12/23/21 11:11 Last Admin: 12/23/21 09:11 Dose: 200 mls/hr Documented by: [id number] Levetiracetam (Levetiracetam 500 Mg Tab) 500 mg PO BID [place] Stop: 01/21/22 20:59 Last Admin: 12/23/21 09:11 Dose: 500 mg Documented by: [id number] Admin: 12/22/21 21:56 Dose: 500 mg Documented by: [id number] Meloxicam (Meloxicam 7.5 Mg Tab) 15 mg PO QAM [place] Stop: 01/21/22 10:51 Last Admin: 12/23/21 09:12 Dose: 15 mg Documented by: [id number] Admin: 12/22/21 12:45 Dose: 15 mg Documented by: [id number] Oxycodone HCl (Oxycodone Hcl Ir 5 Mg Tab (Immediate Release)) 5 mg PO Q4H PRN PRN Reason: Pain Stop: 01/05/22 10:51 Last Admin: 12/23/21 09:15 Dose: 5 mg Documented by: [id number] Admin: 12/23/21 04:44 Dose: 5 mg Documented by: [id number] Admin: 12/22/21 21:56 Dose: 5 mg Documented by: [id number] Admin: 12/22/21 16:37 Dose: 5 mg Documented by: [id number] Admin: 12/22/21 11:31 Dose: 5 mg Documented by: [id number] Quetiapine Fumarate (Quetiapine Fumarate 300 Mg Tablet) 600 mg PO HS [place] Stop: 01/21/22 20:59 Last Admin: 12/22/21 21:56 Dose: 600 mg Documented by: [id number] Discontinued Medications Gadobutrol (Gadobutrol 65ml Vial) 10.9 ml IV ONCE ONE Stop: 12/22/21 17:55 Last Admin: 12/22/21 17:39 Dose: 10.9 ml Documented by: [id number] Levetiracetam 1,000 mg/ Sodium (Chloride) 110 mls @ 440 mls/hr IV NOW STA Stop: 12/22/21 04:40 Last Infusion: 12/22/21 05:25 Dose: 0 mls/hr Documented by: [id number] Admin: 12/22/21 05:01 Dose: 440 mls/hr Documented by: [id number] Lactated Ringer's (Lr) 1,000 mls @ 80 mls/hr IV .[id number] ONE Stop: 12/22/21 18:34 Last Infusion: 12/22/21 21:48 Dose: 0 mls/hr Documented by: [id number] Admin: 12/22/21 08:06 Dose: 80 mls/hr Documented by: [id number] Description This is a 21 electrode EEG with a single channel dedicated to limited EKG. The electrodes were placed in accordance with the International 10-20 system. Current EEG was done as a bedside recording is of good technical quality with a few muscle and movement artifact and video analysis patient movement and behavior confirms this. Patient also appears to periodically entering periods of drowsiness short duration and video analysis would seem to confirm this as well. Stimulation was performed. Sustained drowsiness and light sleep not recorded. Presentations there is a background rhythm alpha range of up to 10 Hz maximum to 30 V maximal amplitude which is symmetrical posterior head regions. Centrally and theta activity is mid frequency sometimes shifting in the lower frequencies during periods of drowsiness and becoming somewhat rhythmic during those intervals. No associated sharp waves or potential epileptogenic features are noted. Beta activity seen bifrontally. Chronic stimulation due to minimal dry response. No photoparoxysmal photo myogenic components are noted. At no time is evidence for clear-cut potential epileptogenic features such as sharp wave spikes spike and wave discharges etc. Interpretation This is normal EEG during wakefulness and drowsiness Clinical Correlation Is a normal EEG revealed no evidence for a focal or generalized encephalopathy and no evidence for potential epileptogenic activity but does not exclude the diagnosis of seizure disorder Ronan Adair MD
[2021-12-23 10:41] LABS: Appearance Urine Clear (Clear); Bilirubin Urine Negative (Negative); Blood Urine Negative (Negative); Color Urine Dark Yellow; Glucose Urine UA Negative (Negative); Ketones Urine 1+ (Negative); Leukocyte Esterase Urine Negative (Negative); Nitrite Urine Negative (Negative); Protein Urine Negative (Negative); Urobilinogen Urine Negative (Negative); pH Urine 6.5 (4.5-7.5)
--- NOTE | 2021-12-23 10:51 | CT Scan Report ---
CT abd pelvis wo con CLINICAL HISTORY: Lower abdominal pain COMPARISON STUDY: No previous studies for comparison. CT DOSE: 575.21 mGy.cm TECHNIQUE: Standard CT of the Abdomen and Pelvis was performed without IV contrast. The patient did not receive oral contrast. A dose lowering technique was utilized adhering to the principles of TYESHA Manley. FINDINGS: Lung base: The lung bases are clear. Minimal linear atelectasis seen at both lung bases. Abdominal cavity: There is no evidence for abdominal mass, adenopathy or ascites. Liver: There is evidence for mild hepatomegaly with mild diffuse fatty infiltration of the liver.. Spleen: The spleen is homogeneous in attenuation on these limited noncontrast images. The spleen is a t the upper limits of normal in size. Pancreas: The pancreas is homogeneous in attenuation on these limited noncontrast images. Gall Bladder: The gallbladder is well distended with no evidence for cholelithiasis, wall thickening or pericholecystic edema.. Adrenal glands: The adrenal glands are normal in size and attenuation on these limited noncontrast im ages. Kidneys: The kidneys are homogeneous in attenuation on these limited noncontrast images. There are mu ltiple, 2 to 3 mm nonobstructing bilateral renal calculi. There is no evidence for hydronephrosis. Bowel: The bowel loops are normally placed within the abdomen and pelvis without evidence for dilatat ion or obstruction. There is no evidence for mass lesion. There are no inflammatory changes present. There is no evidence for free air. There is no evidence for an inflamed appendix. Bladder: There is no evidence for focal bladder wall thickening, calculus or diverticulum. However, t here is diffuse thickening of the bladder wall which can be seen with cystitis. : There is no evidence for pelvic mass or adenopathy. Vasculature: There is no evidence for focal aneurysmal dilatation of the abdominal aorta. Osseous structures: There is no acute osseous pathology. IMPRESSION: 1. Diffuse thickening of the bladder wall which can be seen with cystitis. 2. No other evidence for acute intra-abdominal or pelvic abnormality on these limited noncontrast jong ges. 3. There are multiple bilateral nonobstructing renal calculi. ACT 112: Negative or not required by law. Electronically signed by: Julius Loyola M.D. 12/23/2021 10:49 AM
--- NOTE | 2021-12-23 12:24 | Communication Note ---
Date of Service: December 23, 2021 Neurology has been asked to evaluate [place] Hendrix is a 36-year-old right- handed male on for 2 generalized seizures which occurred on the day of admission yesterday and were not apparently precipitated by any change in medications, addition of new medications, any documented intoxication, prior head injury, but had been preceded by remote seizure precipitated by Xanax withdrawal Patient had a single event was seen in the emergency room was started on Keppra but then had another event at home was brought back loaded up with Keppra and is now on 500 mg twice a day and has had no recurrent issues An MRI of the brain is normal and EEG done today reveals no evidence for potentially epileptogenic activity but a course is not exclude the diagnosis He clearly has had a seizure as he is suffering from lingual buccal lacerations and has diffuse myalgias and an elevated white count and clear evidence for bodily injury He has a history of bipolar disease anxiety suicidal ideation, prior medication overdose, anger management issues, and is managed by psychiatry in [place] yet lives here in [place] 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 He is on medical marijuana. His tox screen did reveal evidence for the marijuana but also opiates and barbiturates which she denies taking He does have access to tramadol but claims he has not been taking the medication so the interaction of tramadol with his serotonin reuptake inhibitor is an unlikely cause for the current serial seizures Home medications include medical marijuana citalopram, hydroxyzine, meloxicam, quetiapine 600 mg at bedtime and again he has access to tramadol but does not take it Julia history social history are as recorded in the admitting note Review of systems reveals no recent fever sweats chills or other symptoms of an infectious disease no new cardiovascular pulmonary gastrointestinal genitourinary musculoskeletal dermatologic or hematologic issues other than the residual dysarthria and myalgias stemming from the serial seizures and resolving and lingual buccal lacerations and musculoskeletal pain Exam reveals blood pressure 129/68 pulse is 100 respirations are 18 he is afebrile O2 saturations are 98% on room air He is awake alert oriented 3 spheres but has dysarthria which he attributes to the pain of his lacerated tongue. Eye movements are normal I do not see any abnormal involuntary movements but he is restless. None of this appears choreiform. Facial motility and strength or sensation are normal. Limited gait testing is normal. Reflexes are all 1+ symmetrical toes are downgoing no Marilynn signs are seen strength testing is normal and sensations intact to vibration light touch and temperature I think we have to consider this an idiopathic seizure disorder although he is on a number of medications which could reduce his seizure threshold. He is apparently on needed to control his psychiatric disorder so at this point I am simply going to recommend that we "treat around" the medication issue with Keppra 500 mg twice a day in hopes that this does not precipitate more anger issues personality changes etc. If it does he may be someone who could be switched to Depakote or possibly Lamictal We will need to see him on an outpatient basis in about 3 weeks and I think we need to schedule him for a 72-hour EEG to see if there is any potential seizure focus in the temporal lobe or any primary generalized discharges that could have been missed in a 20-minute EEG done only during wakefulness At this point neurology will sign off the case we will arrange to have him followed up in our office in about 3 weeks Ronan Adair MD The above note was generated utilizing voice recognition technology and may have spelling errors punctuation errors pronoun usage errors and syntax errors
--- NOTE | 2021-12-23 18:49 | Hospitalist Progress Note ---
Date of Service December 23, 2021 Assessment & Plan (1) Witnessed seizure-like activity: Plan: 36-year-old man with PMH of drug abuse, manic bipolar 1 disorder, anxiety, depression presented to the ED 12/22 with complaint of seizures x2 in the last 2 days [employer]. Last 1 was in the evening prior to arrival. Lasted for about 2 minutes, patient remained confused leading up to the admission in the ED. History of previous seizure in 2005 attributed to Xanax medication. Is being managed for the following: #. New onset seizure #. Rhabdomyolysis: 2/2 above, cpk elevated on 12/23 Patient had 2 episodes of seizure in the last 2 days [employer]. [See above] Witnessed seizure. Admitting WBC elevated, likely secondary to acute distress. No signs of infection identified. Admitting prolactin 19.46. Admitting electrolytes fairly WNL. Admitting CT head: No acute findings. 12/22 brain MRI - no acute findings. U tox so far positive for marijuana barbiturates and opiates. Patient denies any drug abuse for " many years". In the past, he reports using "all sorts of" drug. Continue with IV fluids, Keppra, await final urine toxicology screen. Neurology evaluated, Keppra 500 mg twice daily. Follow-up with neurology in 3 weeks. EEG as an outpatient. Tramadol on hold due to given possibility to lower seizure threshold. #. Leucocytosis Admitting WBC around 13 K Patient had temperature around 38C multiple times Likely secondary to seizure and ensuing rhabdomyolysis Procalcitonin negative, continue antibiotic empirically. Infection work-up in progress. #. Other chronic medical conditions: Mood disorder/anxiety disorder/past history of drug abuse/ongoing tobacco abuse Continue with/resume home meds as and when appropriate. Nicotine replacement therapy as needed DVT prophylaxis per Lovenox subcu Full code Patient sister Ms. Bridgett Ann, contact #[phone]. Disposition: Pending improvement in his rhabdomyolysis. Admission and Anticipated Discharge Date Admission Date: December 22, 2021 Subjective Patient seen and examined at bedside as a follow-up of new onset seizure. Patient was lying in bed, on room air, NAD, no new acute events overnight. Patient denies any further seizure events while in hospital. Patient reports having his whole body ache, ongoing, CPK was elevated today, will place him on IVF. No obvious trauma to his body. Bilateral tongue biting noted on exam. Patient denies headache or dizziness. Tmax of 38.7C. Physical Exam Physical Exam: GENERAL: Alert and oriented x3. NAD, on RA. Sleepy. HEENT: No pallor, no icterus. Pupils equal, round and reactive to light. Oral mucosa moist. NECK: No JVD, no neck masses. HEART: S1 and S2 heard. Regular rate and rhythm. No murmur, no gallop. RESPIRATORY SYSTEM: Normal AP diameter. No accessory muscle use. No wheezing, no crackles. ABDOMEN: Soft, bowel sounds present, nontender, no distention. CENTRAL NERVOUS SYSTEM: No facial droop. Speech is clear. Obeys simple comman ds. Moves extremities. EXTREMITIES: No edema, no erythema seen. Results & Data Results & Data ([facility]) Vital Signs (Past 12 Hours) Vital Signs Temp Pulse Pulse Resp BP BP Pulse Ox 12/23/21 14:52 37.0 C 95 H 16 129/75 100 12/23/21 11:34 37.3 C 100 H 18 129/68 98 12/23/21 07:22 38.7 C H 97 H 16 106/60 97 12/23/21 07:14 108 H
[2021-12-23] MEDS: SODIUM CHLORIDE 0.9% 1000ML 1,000 ML IV SCH (19:36)
[2021-12-23] MEDS: POT PHOSPHATE MONOBASIC W/ SOD TAB PO SCH (20:03)
[2021-12-23] MEDS: VANCOMYCIN HCL 1,250 MG in SODIUM CHLORIDE 0.9% 250 ML IV SCH (21:22)
[2021-12-23] MEDS: QUEtiapine FUMARATE 300 MG TABLET PO SCH (22:48)
[2021-12-24] MEDS: SODIUM CHLORIDE 0.9% 1000ML 1,000 ML IV SCH ×3 (02:15→18:31)
[2021-12-24 07:46] LABS: Estimated Average Glucose 94 mg/dl; Hemoglobin A1C 4.9 % (4.5-5.6)
[2021-12-24 08:37] LABS: Hematocrit (blood only) 34.9 % (42-52); Hemoglobin 12.9 g/dL (14.0-18.0); Mean Corpuscular Volume 83.9 fL (80-100); Mean Platelet Volume 9.9 fL (7.4-10.4); Platelet Count 232 K/uL (130-400); RDW Coefficient of Variation 12.8 % (11.5-14.5); RDW Standard Deviation 38.7 fL (36.4-46.3); Red Blood Count 4.16 M/uL (4.7-6.1); White Blood Count 11.94 K/uL (4.8-10.8)
[2021-12-24] MEDS: cefTRIAXone SODIUM 2,000 MG in DEXTROSE 5% 50 ML IV SCH (08:43)
[2021-12-24] MEDS: oxyCODONE HCL IR 5 MG TAB (IMMEDIATE RELEASE) PO PRN ×4 (08:43→22:46)
[2021-12-24] MEDS: VANCOMYCIN HCL 1,250 MG in SODIUM CHLORIDE 0.9% 250 ML IV SCH ×2 (08:43→20:58)
[2021-12-24] MEDS: hydrOXYzine HCl 25 MG TAB PO PRN (08:43)
[2021-12-24] MEDS: ESCITALOPRAM OXALATE 10 MG TAB PO SCH (08:45)
[2021-12-24] MEDS: MELOXICAM 7.5 MG TAB PO SCH (08:45)
[2021-12-24] MEDS: POT PHOSPHATE MONOBASIC W/ SOD TAB PO SCH ×4 (08:45→20:59)
[2021-12-24] MEDS: levETIRAcetam 500 MG TAB PO SCH ×2 (08:45→20:58)
[2021-12-24] MEDS: ENOXAPARIN INJ 40 MG/0.4 ML SYR SQ SCH (08:46)
[2021-12-24 09:00] LABS: BUN Creatinine Ratio 11.7 (10-20); Calcium 8.5 mg/dl (8.5-10.1); Creatinine Clr Calc Pharmacy 220.2 ml/min; Est GFR (African American) 149.9 ml/min; Est GFR (Non-African American) 129.4 ml/min; Phosphorus 2.3 mg/dl (2.5-4.9); Potassium 3.7 mmol/L (3.5-5.1)
[2021-12-24] MEDS: ACETAMINOPHEN 325 MG TAB PO PRN (15:36)
--- NOTE | 2021-12-24 16:54 | Hospitalist Progress Note ---
Date of Service December 24, 2021 Assessment & Plan (1) Witnessed seizure-like activity: Plan: 36-year-old man with PMH of drug abuse, manic bipolar 1 disorder, anxiety, depression presented to the ED 12/22 with complaint of seizures x2 in the last 2 days [employer]. Last 1 was in the evening prior to arrival. Lasted for about 2 minutes, patient remained confused leading up to the admission in the ED. History of previous seizure in 2005 attributed to Xanax medication. Is being managed for the following: #. New onset seizure #. Rhabdomyolysis: 2/2 above, cpk elevated on 12/23 Patient had 2 episodes of seizure in the last 2 days [employer]. [See above] Witnessed seizure. Admitting WBC elevated, likely secondary to acute distress. No signs of infection identified. Admitting prolactin 19.46. Admitting electrolytes fairly WNL. Admitting CT head: No acute findings. 12/22 brain MRI - no acute findings. 12/24 EEG: normal EEG U tox so far positive for marijuana barbiturates and opiates. Patient denies any drug abuse for " many years". In the past, he reports using "all sorts of" drug. Continue with IV fluids, Keppra, await final urine toxicology screen. Neurology evaluated, Keppra 500 mg twice daily. Follow-up with neurology in 3 weeks. 72 hr EEG as an outpatient. Tramadol on hold due to given possibility to lower seizure threshold. #. Leucocytosis #. GPC bacteremia, preliminary Admitting WBC around 13 K, up trended and now coming down. Patient had temperature around 38C prior to 12/24 12/23 blood culture positive for GPC, preliminary, follow final results. Likely secondary to seizure and ensuing rhabdomyolysis Vs infection 12/23 procalcitonin negative, continue vancomycin and Rocephin 12/23 ID consult, echo, follow-up final results, repeat blood culture tomorrow a.m. #. Other chronic medical conditions: Mood disorder/anxiety disorder/past history of drug abuse/ongoing tobacco abuse Continue with/resume home meds as and when appropriate. Nicotine replacement therapy as needed DVT prophylaxis per Lovenox subcu Full code Patient sister Ms. Bridgett Ann, contact #[phone]. Disposition: Pending ID eval, ?? Iv atb. Admission and Anticipated Discharge Date Admission Date: December 22, 2021 Subjective Patient seen and examined at bedside as a follow-up of new onset seizure. Patient was lying in bed, on room air, NAD, no new acute events overnight. Patient denies any further seizure events while in hospital. Patient reports improvement in his body ache, continue with IV fluids, reports feeling better. Denies headache. Bilateral tongue biting noted on exam. Patient denies headache or dizziness. Patient afebrile for the last 24 hours. Physical Exam Physical Exam: GENERAL: Alert and oriented x3. NAD, on RA. HEENT: No pallor, no icterus. Pupils equal, round and reactive to light. Oral mucosa moist. NECK: No JVD, no neck masses. HEART: S1 and S2 heard. Regular rate and rhythm. No murmur, no gallop. RESPIRATORY SYSTEM: Normal AP diameter. No accessory muscle use. No wheezing, no crackles. ABDOMEN: Soft, bowel sounds present, nontender, no distention. CENTRAL NERVOUS SYSTEM: No facial droop. Speech is clear. Obeys simple commands. Moves extremities. EXTREMITIES: No edema, no erythema seen. Results & Data Results & Data ([facility]) Vital Signs (Past 12 Hours) Vital Signs Temp Pulse Pulse Resp BP BP Pulse Ox 12/24/21 16:08 36.8 C 68 18 119/69 99 12/24/21 12:00 36.8 C 76 18 110/70 100 12/24/21 10:00 96 H 12/24/21 07:50 37.0 C 86 18 126/80 97
[2021-12-24] MEDS: QUEtiapine FUMARATE 300 MG TABLET PO SCH (22:46)
[2021-12-25] MEDS: SODIUM CHLORIDE 0.9% 1000ML 1,000 ML IV SCH ×2 (02:58→10:06)
[2021-12-25] MEDS: ENOXAPARIN INJ 40 MG/0.4 ML SYR SQ SCH (08:21)
[2021-12-25] MEDS: cefTRIAXone SODIUM 2,000 MG in DEXTROSE 5% 50 ML IV SCH (08:21)
[2021-12-25] MEDS: oxyCODONE HCL IR 5 MG TAB (IMMEDIATE RELEASE) PO PRN ×4 (08:22→20:32)
[2021-12-25] MEDS: hydrOXYzine HCl 25 MG TAB PO PRN (08:22)
[2021-12-25] MEDS: MELOXICAM 7.5 MG TAB PO SCH (08:22)
[2021-12-25] MEDS: POT PHOSPHATE MONOBASIC W/ SOD TAB PO SCH ×3 (08:23→16:28)
[2021-12-25] MEDS: ESCITALOPRAM OXALATE 10 MG TAB PO SCH (08:23)
[2021-12-25] MEDS: levETIRAcetam 500 MG TAB PO SCH ×2 (08:23→20:32)
[2021-12-25 08:31] LABS: Hematocrit (blood only) 32.9 % (42-52); Hemoglobin 11.9 g/dL (14.0-18.0); Mean Corpuscular Hemoglobin 30.2 pg (25-34); Mean Corpuscular Hgb Conc 36.2 g/dL (32-36); Mean Corpuscular Volume 83.5 fL (80-100); Mean Platelet Volume 9.9 fL (7.4-10.4); Platelet Count 230 K/uL (130-400); RDW Coefficient of Variation 12.7 % (11.5-14.5); RDW Standard Deviation 38.8 fL (36.4-46.3); Red Blood Count 3.94 M/uL (4.7-6.1); White Blood Count 6.87 K/uL (4.8-10.8)
[2021-12-25 08:54] LABS: Anion Gap 5 (3-11); BUN Creatinine Ratio 10.2 (10-20); Blood Urea Nitrogen 6 mg/dl (6-23); Calcium 8.3 mg/dl (8.5-10.1); Carbon Dioxide 27 mmol/L (21-32); Chloride 109 mmol/L (98-107); Creatine Kinase 1917 U/L (30-223); Creatinine Clr Calc Pharmacy 223.8 ml/min; Est GFR (African American) > 150.0 ml/min; Est GFR (Non-African American) 130.3 ml/min; Glucose 98 mg/dl (70-99(Fasting)); Potassium 3.4 mmol/L (3.5-5.1); Sodium 141 mmol/L (136-145)
[2021-12-25] MEDS ORDERED: POTASSIUM CHLORIDE CRTAB 20 MEQ TABCR PO STA (09:19)
--- NOTE | 2021-12-25 09:29 | Pharmacy Report ---
Pharmacy Vanc AUC Short Note - Date of Service December 25, 2021 - Assessment & Plan Assessment * 36 year old M receiving ceftriaxone and vancomycin empirically * PMH: IVDA * 12/23 BC 08/07 growing coag negative staph, contaminate?, repeated 12/25 pending * Procal normal, afebrile 12/24 and today, WBC trending down * Day 3 antibiotic therapy, Dr Mcguire would like to continue antibiotics d/t fevers 12/22 and 12/23, unknown last IV drug use, and until seen by ID Plan Vancomycin * AUC/SAWYER is the preferred PK/PD target for vancomycin * AUC guided dosing is effective and associated with decreased risk of nephrotoxicity compared to traditional trough targets * Random Vancomycin level indicates subtherapeutic dosing * Change dose to Vancomycin 1250mg IV Q8H Ceftriaxone * 2g IV Q24H for Wt > 80kg Pharmacy will continue to follow and will adjust dose/frequency as necessary. Thank you.
[2021-12-25] MEDS: VANCOMYCIN HCL 1,250 MG in SODIUM CHLORIDE 0.9% 250 ML IV SCH ×3 (10:01→18:02)
--- NOTE | 2021-12-25 17:07 | Hospitalist Progress Note ---
Date of Service December 25, 2021 Assessment & Plan (1) Witnessed seizure-like activity: Plan: 36-year-old man with PMH of drug abuse, manic bipolar 1 disorder, anxiety, depression presented to the ED 12/22 with complaint of seizures x2 in the last 2 days [employer]. Last 1 was in the evening prior to arrival. Lasted for about 2 minutes, patient remained confused leading up to the admission in the ED. History of previous seizure in 2005 attributed to Xanax medication. Is being managed for the following: #. New onset seizure #. Rhabdomyolysis: 2/2 above, cpk elevated on 12/23 Patient had 2 episodes of seizure in the last 2 days [employer]. [See above] Witnessed seizure. Admitting WBC elevated, likely secondary to acute distress. No signs of infection identified. Admitting prolactin 19.46. Admitting electrolytes fairly WNL. Admitting CT head: No acute findings. 12/22 brain MRI - no acute findings. 12/24 EEG: normal EEG U tox so far positive for marijuana barbiturates and opiates. Patient denies any drug abuse for " many years". In the past, he reports using "all sorts of" drug. Continue with IV fluids, Keppra, await final urine toxicology screen. Neurology evaluated, Keppra 500 mg twice daily. Follow-up with neurology in 3 weeks. 72 hr EEG as an outpatient. Tramadol on hold due to given possibility to lower seizure threshold. #. Leucocytosis at POA + increased HR POA + increased Temp early in admission = SIRS POA #. GPC bacteremia, preliminary Admitting WBC around 13 K, up trended and now coming down. Patient had temperature around 38C prior to 12/24 12/23 blood culture positive for GPC, preliminary, follow final results. Likely secondary to seizure and ensuing rhabdomyolysis Vs infection 12/23 procalcitonin negative, continue vancomycin and Rocephin 12/23 ID consult, echo, follow-up final results, f/u repeat blood culture. #. Other chronic medical conditions: Mood disorder/anxiety disorder/past history of drug abuse/ongoing tobacco abuse Continue with/resume home meds as and when appropriate. Nicotine replacement therapy as needed DVT prophylaxis per Lovenox subcu Full code Patient sister Ms. Bridgett Ann, contact #[phone]. Disposition: Pending ID eval, ?? atb. Admission and Anticipated Discharge Date Admission Date: December 22, 2021 Subjective Patient seen and examined at bedside as a follow-up of new onset seizure. Patient was lying in bed, on room air, NAD, no new acute events overnight. Patient denies any further seizure events while in hospital. Patient reports improvement in his body ache, continue with IV fluids, reports feeling better. Denies headache. Bilateral tongue biting noted on exam. Patient denies headache or dizziness. Patient afebrile for the last 24 hours. Physical Exam Physical Exam: GENERAL: Alert and oriented x3. NAD, on RA. HEENT: No pallor, no icterus. Pupils equal, round and reactive to light. Oral mucosa moist. NECK: No JVD, no neck masses. HEART: S1 and S2 heard. Regular rate and rhythm. No murmur, no gallop. RESPIRATORY SYSTEM: Normal AP diameter. No accessory muscle use. No wheezing, no crackles. ABDOMEN: Soft, bowel sounds present, nontender, no distention. CENTRAL NERVOUS SYSTEM: No facial droop. Speech is clear. Obeys simple commands. Moves extremities. EXTREMITIES: No edema, no erythema seen. Results & Data Results & Data ([facility]) Vital Signs (Past 12 Hours) Vital Signs Temp Pulse Pulse Pulse Resp BP BP 12/25/21 14:43 36.4 C L 65 18 128/78 12/25/21 11:34 36.6 C 88 18 134/81 12/25/21 08:00 78 12/25/21 06:59 36.7 C 67 18 117/69 Pulse Ox 12/25/21 14:43 100 12/25/21 11:34 98 12/25/21 08:00 12/25/21 06:59 98
[2021-12-26] MEDS: oxyCODONE HCL IR 5 MG TAB (IMMEDIATE RELEASE) PO PRN ×3 (00:58→14:02)
[2021-12-26] MEDS: QUEtiapine FUMARATE 300 MG TABLET PO SCH (00:58)
[2021-12-26] MEDS: VANCOMYCIN HCL 1,250 MG in SODIUM CHLORIDE 0.9% 250 ML IV SCH ×2 (01:01→09:37)
[2021-12-26 07:00] LABS: Hematocrit (blood only) 34.5 % (42-52); Hemoglobin 12.9 g/dL (14.0-18.0); Mean Corpuscular Hemoglobin 31.2 pg (25-34); Mean Corpuscular Hgb Conc 37.4 g/dL (32-36); Mean Corpuscular Volume 83.5 fL (80-100); Mean Platelet Volume 9.8 fL (7.4-10.4); Platelet Count 251 K/uL (130-400); RDW Coefficient of Variation 12.5 % (11.5-14.5); RDW Standard Deviation 38.2 fL (36.4-46.3); Red Blood Count 4.13 M/uL (4.7-6.1); White Blood Count 6.68 K/uL (4.8-10.8)
[2021-12-26 07:24] LABS: BUN Creatinine Ratio 7.8 (10-20); Calcium 8.9 mg/dl (8.5-10.1); Creatinine Clr Calc Pharmacy 206.1 ml/min; Potassium 3.4 mmol/L (3.5-5.1)
[2021-12-26] MEDS: MELOXICAM 7.5 MG TAB PO SCH (08:22)
[2021-12-26] MEDS: levETIRAcetam 500 MG TAB PO SCH (08:22)
[2021-12-26] MEDS: ESCITALOPRAM OXALATE 10 MG TAB PO SCH (08:22)
[2021-12-26] MEDS: ENOXAPARIN INJ 40 MG/0.4 ML SYR SQ SCH (08:23)
[2021-12-26] MEDS ORDERED: POTASSIUM CHLORIDE CRTAB 20 MEQ TABCR PO STA (08:26)
[2021-12-26] MEDS: cefTRIAXone SODIUM 2,000 MG in DEXTROSE 5% 50 ML IV SCH (08:27)
--- NOTE | 2021-12-26 14:36 | Hospitalist Progress Note ---
Date of Service December 26, 2021 Assessment & Plan (1) Witnessed seizure-like activity: Plan: 36-year-old man with PMH of drug abuse, manic bipolar 1 disorder, anxiety, depression presented to the ED 12/22 with complaint of seizures x2 in the last 2 days [employer]. Last 1 was in the evening prior to arrival. Lasted for about 2 minutes, patient remained confused leading up to the admission in the ED. History of previous seizure in 2005 attributed to Xanax medication. Is being managed for the following: New onset seizure Rhabdomyolysis: 2/2 above, cpk elevated on 12/23 Patient had 2 episodes of witnessed seizure in the last 2 days [employer]. [See above] Admitting CT head: No acute findings. 12/22 brain MRI - no acute findings. 12/24 EEG: normal EEG U tox so far positive for marijuana barbiturates and opiates. Patient denies any drug abuse for " many years". In the past, he reports using "all sorts of" drug. Continue with IV fluids, Keppra, Await final urine toxicology screen. Neurology evaluated, Keppra 500 mg twice daily. Follow-up with neurology in 3 weeks. 72 hr EEG as an outpatient. Tramadol on hold due to given possibility to lower seizure threshold. Remains medically stable without any more seizures She will be going home likely tomorrow (2) Bacteremia: Plan: Leucocytosis at POA + increased HR POA + increased Temp early in admission = SIRS POA GPC bacteremia, preliminary Admitting WBC around 13 K, up trended and now coming down. Patient had temperature around 38C prior to 12/24 12/23 blood culture /2 positive for coagulase negative staph not lugdunensis Has been on vancomycin and Rocephin 12/23 Vancomycin has been discontinued as of 12/26/2021 Echo of the heart-no significant valvular pathology and no evidence of a mass or vegetation. The LV is normal in size with normal systolic function with EF 55 to 60%. RV systolic function is normal. Left atrial size is normal and right atrial size is normal Repeat blood cultures are negative Await ID input and recommendation Plan: Other chronic medical conditions: Mood disorder/anxiety disorder/past history of drug abuse/ongoing tobacco abuse Continue with/resume home meds as and when appropriate. Nicotine replacement therapy as needed DVT prophylaxis per Lovenox subcu Full code Patient sister Ms. Bridgett Ann, contact #[phone]. . Admission and Anticipated Discharge Date Admission Date: December 22, 2021 Subjective 12/26/2021 The patient was seen and examined in medical telemetry unit He has been feeling much better and did not have any more seizures He did not have any more fever and or chills and no other signs and or symptoms of infection Has been waiting to be seen by the ID specialist from [place] through telehealth Review of Systems Review of Systems: All systems reviewed and are unremarkable except as noted below Physical Exam Physical Exam: Sitting on the bed without any acute distress Constitutional: well developed and well nourished; not ill appearing Eyes: PERRL, conjunctivae normal, anicteric sclerae ENMT: external ear and nose normal, oropharynx normal Neck: trachea midline, no thyromegaly Respiratory: no respiratory distress Auscultation: lungs clear to auscultation bilaterally Cardiovascular: Rate/Rhythm: regular rate and regular rhythm; not tachycardic Heart Sounds: normal S1 and normal S2; no murmur Extremities: no edema Gastrointestinal (Abdomen): Inspection/Auscultation: normal bowel sounds; abdomen not distended Percussion/Palpation: abdomen soft; abdomen nontender Musculoskeletal: No acute arthritis in any joint Neurologic: Alert, awake and oriented x3. No focal sensory or no motor deficit appreciated Lymphatic: no cervical or axillary lymphadenopathy Results & Data Results & Data ([facility]) Vital Signs (Past 12 Hours) Vital Signs Temp Pulse Pulse Pulse Resp BP Pulse Ox 12/26/21 11:02 36.4 C L 70 20 114/66 98 12/26/21 08:02 72 12/26/21 06:39 36.6 C 65 18 111/67 98 12/26/21 04:06 36.3 C L 62 18 143/75 H 97 Laboratory Results Short CBC 12/26/21 Range/Units 06:42 WBC 6.68 (4.8-10.8) K/uL Hgb 12.9 L (14.0-18.0) g/dL Hct 34.5 L (42-52) % Plt Count 251 (130-400) K/uL BMP 12/26/21 06:42 Sodium 141 Potassium 3.4 L Chloride 105 Carbon Dioxide 31 BUN 5 L Creatinine 0.64 Glucose 91 Calcium 8.9 Cardiac Enzymes 12/26/21 Range/Units 06:42 Total Creatine Kinase 1080 H (30-223) U/L Medications Administered Current Inpatient Medications Acetaminophen (Acetaminophen 325 Mg Tab) 650 mg PO Q4H PRN PRN Reason: Pain or Fever Stop: 01/21/22 10:51 Last Admin: 12/24/21 15:36 Dose: 650 mg Documented by: Enoxaparin Sodium (Enoxaparin Inj 40 Mg/0.4 Ml Syr) 40 mg SQ QAM [facility] Stop: 01/21/22 10:59 Last Admin: 12/26/21 08:23 Dose: 40 mg Documented by: Escitalopram Oxalate (Escitalopram Oxalate 10 Mg Tab) 5 mg PO DAILY [facility] Stop: 01/21/22 10:59 Last Admin: 12/26/21 08:22 Dose: 5 mg Documented by: Hydroxyzine HCl (Hydroxyzine Hcl 25 Mg Tab) 25 mg PO QID PRN PRN Reason: Anxiety Stop: 01/21/22 10:51 Last Admin: 12/25/21 08:22 Dose: 25 mg Documented by: Ceftriaxone Sodium 2,000 mg/ (Dextrose) 70 mls @ 100 mls/hr IV DAILY [facility]; Protocol Stop: 01/02/22 08:59 Last Infusion: 12/26/21 09:42 Dose: Infused Documented by: Levetiracetam (Levetiracetam 500 Mg Tab) 500 mg PO BID [facility] Stop: 01/21/22 20:59 Last Admin: 12/26/21 08:22 Dose: 500 mg Documented by: Lorazepam (Lorazepam 2 Mg/1 Ml Vial) 1 mg IV Q10M PRN PRN Reason: active seizures Stop: 01/21/22 06:53 Meloxicam (Meloxicam 7.5 Mg Tab) 15 mg PO QAM [place] Stop: 01/21/22 10:51 Last Admin: 12/26/21 08:22 Dose: 15 mg Documented by: Oxycodone HCl (Oxycodone Hcl Ir 5 Mg Tab (Immediate Release)) 5 mg PO Q4H PRN PRN Reason: Pain Stop: 01/05/22 10:51 Last Admin: 12/26/21 14:02 Dose: 5 mg Documented by: Quetiapine Fumarate (Quetiapine Fumarate 300 Mg Tablet) 600 mg PO HS [facility] Stop: 01/21/22 20:59 Last Admin: 12/26/21 00:58 Dose: 600 mg Documented by:
--- NOTE | 2021-12-27 07:55 | Discharge Summary ---
Date of Service December 26, 2021 Admission HPI Per Admitting Provider History obtained from patient, family, and records. Limited history from patient secondary to obtunded state. Medical history significant for mood disorder, anxiety disorder, past history drug abuse, ongoing tobacco abuse. Last confinement December 2018 for intentional drug overdose. Yesterday morning patient noted by girlfriend to have grand mal seizures lasting about 2 minutes. 2 episodes at home as per report. History of brief seizure in 2005 attributed to Xanax medications. Patient seen at the emergency room yesterday. Keppra prescribed by ER provider. Patient voiced significant concerns regarding possible interactions with the home medications. Outpatient follow-up with PCP and Neurology recommended. Patient had another seizure witnessed by girlfriend earlier this morning. Subsequent emesis. Patient brought to the ER for evaluation. IV Keppra administered at the ER. 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 Admission Exam Per Admitting Provider Physical Exam: GENERAL: Obtunded, obese, no respiratory distress SKIN: Normal color, warm HEENT: Partial alopecia, bespectacled, pink palpebral conjunctivae, no ptosis, dry buccal mucosa NECK : Supple, no tenderness CHEST : Decreased breath sounds, no tenderness HEART : RRR, no obvious murmurs ABDOMEN: Some distention, nontender EXTREMITIES : No LE swelling/tenderness, no other conspicuous deformities noted NEUROLOGIC : Obtunded, no facial asymmetry, rate and stance not assessed Principal Diagnosis New onset seizure, tongue bite, mood disorder/anxiety Discharge Exam Sitting on the bed without any acute distress Constitutional well developed and well nourished; not ill appearing Eyes PERRL, conjunctivae normal, anicteric sclerae ENMT external ear and nose normal, oropharynx normal Neck trachea midline, no thyromegaly Respiratory no respiratory distress Auscultation: lungs clear to auscultation bilaterally Cardiovascular Rate/Rhythm: regular rate and regular rhythm; not tachycardic Heart Sounds: normal S1 and normal S2; no murmur Extremities: no edema Gastrointestinal (Abdomen) Inspection/Auscultation: normal bowel sounds; abdomen not distended Percussion/Palpation: abdomen soft; abdomen nontender Lymphatic no cervical or axillary lymphadenopathy Discharge Data Allergies Allergy/AdvReac Type Severity Reaction Status Date / Time chlorpromazine Allergy Severe TONGUE Verified 12/21/21 10:03 SWELLING vortioxetine Allergy Unknown FACIAL Verified 12/21/21 10:03 SWELLING citalopram AdvReac Severe suicidal Verified 12/21/21 10:03 naltrexone AdvReac Severe THROAT Verified 12/21/21 10:03 SWELLING haloperidol AdvReac Intermediate twitching Verified 12/21/21 10:03 carbamazepine [From Tegretol] AdvReac Unknown COUNTER Verified 12/21/21 10:03 ACTS WITH CURRENT MEDS. gabapentin AdvReac Depression Unverified 12/22/21 06:40 Consultations 12/22/21 05:40 ED Decision to Admit Stat 12/22/21 10:10 Consult Neurology Routine 12/22/21 10:52 Consult Neurology Routine 12/24/21 12:17 Consult Infectious Diseases Routine 12/24/21 16:49 Consult Infectious Diseases Routine Ordered Studies 12/22/21 06:54 MR brain seizure wo/w con Routine 12/23/21 08:08 CT abd pelvis wo con Routine Hospital Course (1) Witnessed seizure-like activity: 36-year-old man with PMH of drug abuse, manic bipolar 1 disorder, anxiety, depression presented to the ED 12/22 with complaint of seizures x2 in the last 2 days 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 Last 1 was in the evening prior to arrival. Lasted for about 2 minutes, patient remained confused leading up to the admission in the ED. History of previous seizure in 2005 attributed to Xanax medication. 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 [See above] Admitting CT head: No acute findings. 12/22 brain MRI - no acute findings. 12/24 EEG: normal EEG U tox so far positive for marijuana barbiturates and opiates. Patient denies any drug abuse for " many years". In the past, he reports using "all sorts of" drug. Continue with IV fluids, Keppra, Await final urine toxicology screen. Neurology evaluated, Keppra 500 mg twice daily. Follow-up with neurology in 3 weeks. 72 hr EEG as an outpatient. Tramadol on hold due to given possibility to lower seizure threshold. Remains medically stable without any more seizures She will be going home likely tomorrow (2) Bacteremia: Leucocytosis at POA + increased HR POA + increased Temp early in admission = SIRS POA GPC bacteremia, preliminary Admitting WBC around 13 K, up trended and now coming down. Patient had temperature around 38C prior to 12/24 12/23 blood culture 1/2 positive for coagulase negative staph not kayla Has been on vancomycin and Rocephin 12/23 Vancomycin has been discontinued as of 12/26/2021 Echo of the heart-no significant valvular pathology and no evidence of a mass or vegetation. The LV is normal in size with normal systolic function with EF 55 to 60%. RV systolic function is normal. Left atrial size is normal and right atrial size is normal Repeat blood cultures are negative Await ID input and recommendation Other chronic medical conditions: Mood disorder/anxiety disorder/past history of drug abuse/ongoing tobacco abuse Continue with/resume home meds as and when appropriate. Nicotine replacement therapy as needed DVT prophylaxis per Lovenox subcu Full code Patient sister Ms. Bridgett Ann, contact #[phone]. . Total Time Total Time Spent Total Time Spent (In Minutes): 35 minutes Discharge Plan Discharge Items Patient Disposition: Home - Self-Care Reason For Visit: BREAKTHROUGH SEIZURE Discharge Diagnosis: New onset seizure, tongue bite, mood disorder/anxiety Condition on Discharge: Fair Activity: Resume your previous activity Non-emergency contact: Primary Care Provider Call non-emergency contact if: you have any medication questions and your symptoms worsen Follow-up/Referrals: Zabrina Garcia PA-C [Physician Project Coach] - (Date & Time 01/14/2022 2:00 PM Provider Zabrina Garcia PA-C Department Neurology [facility] ) Indra Jones MD [Outside Practitioners] - (Date & Time 12/27/2021 2:20 PM Provider Joelle Olvera DO Department [facility] ) Diet: Regular Addtl Attending Provider Instructions: Please take precautions to avoid falls Take your medications as advised You are not allowed to drive until being cleared by the neurologist Please keep appointments with your healthcare providers Do not take any tramadol as this can decrease seizure threshold Pending Studies at Discharge: No Stand-Alone Forms: My [facility] shopp, Smoking Cessation Medications and DC Order Prescriptions: New levetiracetam [Keppra] 500 mg Tablet 500 mg PO BID 30 Days Qty: 60 RF: 0 lidocaine HCl [Lidocaine Viscous] 2 % solution 5 ml PO Q4H PRN (Reason: mouth pain) Qty: 100 RF: 0 Continued hydroxyzine pamoate 25 mg capsule 25 mg PO QID PRN (Reason: Anxiety) RF: 0 quetiapine 300 mg Tablet 600 mg PO HS RF: 0 escitalopram oxalate 5 mg Tablet 5 mg PO DAILY RF: 0 meloxicam 15 mg tablet 15 mg PO QAM RF: 0 cannabidiol 100 mg/mL Solution 100 mg PO DAILY PRN (Reason: Pain) RF: 0 Discontinued tramadol 50 mg tablet 50 mg PO DAILY PRN (Reason: Pain) RF: 0 Discharge Orders: Discharge Order (Routine); Ordered 12/26/21 Ordered By: Susanne Samano Admission Data Admit Date/Time: 12/22/21 06:51 Attending Provider: Susanne Samano Admit Provider: Scot Cavanaugh Primary Care Provider: PCP,NO Other Providers: Ronan Adair ; Scot Cavanaugh ; Zabrina Garcia Kathleen ; Kwesi Cool ; Lynsey Ho ; Silver Walsh ; Staci Nelson ; Herberth Snow I. ; Yrn Melara II ; Haylee Broussard ; Von Allred ; Boston Bennett ; Nhan Mcguire Other Interventions: Discharge Summary Assessment (RN) Last Done: 12/26/21 17:04
== END 2021-12-26 17:20 | disposition home or self-care (01) | DRG 101 ==
LOC: ED 03:54 → EDINP 06:51 → SUATTDRO 06:51 → EDINP 10:36 → 2N 16:18